=== PATIENT | male | born 1935 ===

== ENCOUNTER 2017-04-07 01:15 | Inpatient (IN) | payer OTHER ==
[~2017-04-07] VITALS: Ht 165.1 cm; Wt 59.7 kg
[2017-04-07] VITALS (63 sets, daily range): BP systolic 101–162; BP diastolic 46–121; PULSE 84–144; RESP 14–32; TEMP 99.1; Ht 165.1 cm; Wt 59.7 kg
--- NOTE | 2017-04-07 01:26 | ERA ---
ER Documentation Chief Complaint Date/Time DATE: 04/07/17 TIME: 01:26 Chief Complaint Altered level of consciousness HPI The patient is a 82-year-old male, presenting to the ER because of acute altered level consciousness prior to arrival according to the . 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 The history is very limited and obtained from the . He has not been sick recently, does not have fever cough, chest pain, abdominal pain, vomiting. He does not smoke nor drink. 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 Medications Home Meds Reported Medications Latanoprost (Latanoprost) 2.5 Ml Drops, 1 DROP BOTH EYES QHS, #1 BOTTLE 04/07/17 Atorvastatin* (Atorvastatin*) 40 Mg Tablet, 40 MG PO QHS, #30 TAB 04/07/17 Lisinopril* (Lisinopril*) 40 Mg Tablet, 40 MG PO DAILY, #30 TAB 04/07/17 Glipizide* (Glipizide*) 5 Mg Tablet, 5 MG PO BID, TAB TAKE 1AND1/2 TABLETS IN THE MORNING AND 1 TABLET IN THE EVENING 04/07/17 Metoprolol Tartrate* (Lopressor*) 25 Mg Tab, 25 MG PO BID, #60 TAB 04/07/17 Quetiapine Fumarate* (Quetiapine Fumarate*) 25 Mg Tablet, 25 MG PO HS, TAB 04/07/17 Atorvastatin* (Atorvastatin*) 80 Mg Tablet, 80 MG PO QHS, #30 TAB 04/07/17 Clopidogrel Bisulfate (Clopidogrel) 75 Mg Tablet, 75 MG PO DAILY, #30 TAB 04/07/17 Terazosin Hcl* (Terazosin Hcl*) 5 Mg Capsule, 5 MG PO DAILY, CAP 04/07/17 Amlodipine Besylate* (Norvasc*) 5 Mg Tablet, 5 MG PO DAILY, TAB 04/07/17 Discontinued Reported Medications Losartan Potassium* (Losartan Potassium*) 50 Mg Tablet, 50 MG PO DAILY, TAB 04/07/17 Atorvastatin* (Atorvastatin*) 40 Mg Tablet, 40 MG PO QHS, #30 TAB 04/07/17 Allergies Allergies: Coded Allergies: No Known Allergy (Unverified , 04/07/17) Physical Exam Vitals Vital Signs Date Time Temp Pulse Resp B/P Pulse Ox O2 Delivery O2 Flow Rate FiO2 04/07/17 05:30 91 21 167/66 95 Room Air 04/07/17 05:15 99 26 189/70 99 Room Air 04/07/17 05:00 99 26 188/80 99 Room Air 04/07/17 04:45 94 25 208/73 99 Room Air 04/07/17 04:30 88 17 194/79 95 Room Air 04/07/17 04:15 99.1 70 17 227/89 95 Room Air 04/07/17 03:34 94 33 209/89 95 Room Air 04/07/17 01:29 100.8 94 33 166/89 95 Room Air 04/07/17 01:26 99.1 94 33 160/95 95 Physical Exam Const: No acute distress. Head: Atraumatic. Eyes: Normal Conjunctiva. ENT: Normal External Ears, Nose and Mouth. Neck: Full range of motion. No meningismus. Resp: Clear to auscultation bilaterally. Cardio: Regular rate and rhythm. Abd: Soft, non distended, normal bowel sounds, non tender. Skin: No petechiae or rashes. Back: No midline or flank tenderness. Ext: No cyanosis, or edema. Neur: Limited due to his condition, he is moving all extremity Psych: Unable to perform due to his condition Result Diagram: 04/07/17 0145 04/07/17 0145 Results 24 hrs Laboratory Tests Test 04/07/17 01:45 04/07/17 02:05 04/07/17 02:19 04/07/17 04:12 White Blood Count 14.910^3/ul Red Blood Count 5.1710^6/ul Hemoglobin 16.0g/dl Hematocrit 45.8% Mean Corpuscular Volume 88.6fl Mean Corpuscular Hemoglobin 30.9pg Mean Corpuscular Hemoglobin Concent 34.9g/dl Red Cell Distribution Width 12.5% Platelet Count 46632^3/UL Mean Platelet Volume 9.9fl Neutrophils % 92.6% Lymphocytes % 1.9% Monocytes % 4.9% Eosinophils % 0.0% Basophils % 0.1% Nucleated Red Blood Cells % 0.0/100WBC Neutrophils # (Manual) 13.810^3/ul Lymphocytes # 0.310^3/ul Monocytes # 0.710^3/ul Eosinophils # 0.010^3/ul Basophils # 0.010^3/ul Nucleated Red Blood Cells # 0.010^3/ul Prothrombin Time 13.5Sec Prothrombin Time Ratio 1.1 INR International Normalized Ratio 1.03 Activated Partial Thromboplast Time 30.4Sec Sodium Level 148mmol/L Potassium Level 4.3mmol/L Chloride Level 108mmol/L Carbon Dioxide Level 27mmol/L Anion Gap 17 Blood Urea Nitrogen 30mg/dl Creatinine 1.35mg/dl Glucose Level 317mg/dl Lactic Acid Level 3.3mmol/L 3.4mmol/L Calcium Level 10.2mg/dl Total Bilirubin 0.4mg/dl Direct Bilirubin 0.00mg/dl Indirect Bilirubin 0.4mg/dl Aspartate Amino Transf (AST/SGOT) 78IU/L Alanine Aminotransferase (ALT/SGPT) 104IU/L Alkaline Phosphatase 58IU/L Troponin I 0.042ng/ml Total Protein 7.6g/dl Albumin 4.1g/dl Globulin 3.50g/dl Albumin/Globulin Ratio 1.17 Urine Color BLU Urine Clarity CLOUDY Urine pH 5.[address] [place] 1.031 Urine Ketones TRACEmg/dL Urine Nitrite NEGATIVEmg/dL Urine Bilirubin NEGATIVEmg/dL Urine Urobilinogen 1+mg/dL Urine Leukocyte Esterase NEGATIVELeu/ul Urine Microscopic RBC 16/HPF Urine Microscopic WBC 10/HPF Urine Bacteria FEW/HPF Urine Mucus MODERATE/HPF Urine Hemoglobin 2+mg/dL Urine Glucose 3+mg/dL Urine Total Protein 2+mg/dl Bedside Urine pH (LAB) 5.5 Bedside Urine Protein (LAB) 2+ Bedside Urine Glucose (UA) 0.50% Bedside Urine Ketones (LAB) Trace Bedside Urine Blood 2+ Bedside Urine Nitrite (LAB) Negative Bedside Urine Leukocyte Esterase (L Negative Current Medications Medications (Trade) Dose Ordered Sig/Xiao Route PRN Reason Start Time Stop Time Status Last Admin Dose Admin Acetaminophen 650 mg 650 mg ONCE ONCE MO 04/07/17 02:00 04/07/17 02:01 DC 04/07/17 03:20 Vancomycin HCl 250 ml @ 125 mls/hr ONCE IVPB 04/07/17 03:00 04/07/17 04:59 DC 04/07/17 03:00 Piperacillin Sod/ Tazobactam Sod 50 ml @ 100 mls/hr ONCE ONCE IVPB 04/07/17 03:00 04/07/17 03:29 DC 04/07/17 03:25 Sodium Chloride (NS) 2,480 ml @ 2,480 mls/hr BOLUS X1 ONCE IV 04/07/17 03:00 04/07/17 03:59 DC 04/07/17 03:08 Lorazepam 0.5 mg 0.5 mg ONCE ONCE IV 04/07/17 03:30 04/07/17 03:31 Cancel Nicardipine HCl (Cardene Iv) 200 ml @ 50 mls/hr TITRATE IV 04/07/17 04:00 04/07/17 04:00 Labetalol HCl 10 mg 10 mg Q10M PRN IV elebated BP 04/07/17 05:30 Nicardipine HCl/ Sodium Chloride (Cardene Iv/NS) 250 ml @ 50 mls/hr PER PROTOCOL IV 04/07/17 05:30 Acetaminophen (Tylenol Tab) 650 mg Q4H PRN PO TEMP GREATER THAN 99.6F 04/07/17 05:30 Docusate Sodium 100 mg 100 mg BID PO 04/07/17 09:00 Dextrose/Sodium Chloride (D5-1/2ns) 1,000 ml @ 70 mls/hr [id number] IV 04/07/17 05:22 Ondansetron HCl (Zofran Inj) 4 mg Q6H PRN IV NAUSEA AND/OR VOMITING 04/07/17 05:30 Albuterol/ Ipratropium (Duoneb) 3 ml Q2H RESP THERAPY PRN NEB SHORTNESS OF BREATH 04/07/17 05:30 Lorazepam (Ativan) 1 mg Q2H PRN IV ANXIETY 04/07/17 05:30 04/07/17 05:29 Magnesium Hydroxide (Milk Of Mag) 30 ml DAILY PRN PO CONSTIPATION 04/07/17 05:30 Bisacodyl (Dulcolax) 5 mg DAILY PRN PO CONSTIPATION 04/07/17 05:30 Bisacodyl (Dulcolax Supp) 10 mg DAILY PRN MO CONSTIPATION 04/07/17 05:30 Pantoprazole (Protonix Iv) 40 mg DAILY@06 IV 04/07/17 06:00 Miscellaneous Information (* Miscellaneous Pharmacy Order) Discontinue current oral sulfonylur... ONCE ONCE XX 04/07/17 05:30 04/07/17 05:33 DC Diagnostic Test (Pha) (Accu-Chek) 1 ea 02 XX 04/08/17 02:00 Insulin Glargine (Lantus) 12 unit DAILY@08 KS 04/07/17 08:00 Miscellaneous Information (* Miscellaneous Pharmacy Order) HYPOGLYCEMIA PROTOCOL w... ONCE ONCE XX 04/07/17 05:30 04/07/17 05:33 DC Insulin Aspart (Novolog Insulin Pen) NOVOLOG *MODERATE* ALGORITHM WITH MEALS BEDTIME KS 04/07/17 08:00 Miscellaneous Information (* Miscellaneous Pharmacy Order) Discontinue all previ... ONCE ONCE XX 04/07/17 05:30 04/07/17 05:33 DC Miscellaneous Information 1 ea NOTE XX 04/07/17 05:30 Glucose (Glutose) 15 gm Q15M PRN PO DECREASED GLUCOSE 04/07/17 05:30 Glucose (Glutose) 22.5 gm Q15M PRN PO DECREASED GLUCOSE 04/07/17 05:30 Dextrose (D50w Syringe) 25 ml Q15M PRN IV DECREASED GLUCOSE 04/07/17 05:30 Dextrose (D50w Syringe) 50 ml Q15M PRN IV DECREASED GLUCOSE 04/07/17 05:30 Glucagon (Glucagen) 1 mg Q15M PRN IM DECREASED GLUCOSE 04/07/17 05:30 Glucose (Glutose) 15 gm Q15M PRN BUCCAL DECREASED GLUCOSE 04/07/17 05:30 Procedures/[place] [address] Radiology Main Line: [phone] DIAGNOSTIC IMAGING REPORT Patient: CARLOS RICARDO : 1935 Age: 82 Sex: M [id number] DOS: 04/07/17 0133 Ordering MD: MIGUELINA COLON MD Location: E/R Room/Bed: PROCEDURE: XR Chest. CLINICAL INDICATION: Possible sepsis. TECHNIQUE: Single frontal view of the chest. COMPARISON: None. FINDINGS: Mild cardiomegaly. Mild air space disease at the medial right lung base. The left lung is clear. The lungs are clear. No signs of pleural fluid or pneumothorax are seen. The osseous structures and soft tissues are unremarkable. IMPRESSION: Mild air space disease at the medial right lung base may represent pneumonia in setting of sepsis. RPTAT: [facility]U Physician Brandon Date Time Electronically viewed and signed by Mirian Louise Physician on 04/07/2017 03:01 RS/ CC: MIGUELINA COLON MD [place] [address] Radiology Main Line: [phone] DIAGNOSTIC IMAGING REPORT Patient: CARLOS RICARDO : 1935 Age: 82 Sex: M MR #: [id number] DOS: 04/07/17 0133 Ordering MD: MIGUELINA COLON MD Location: E/R Room/Bed: PROCEDURE: CT Brain without contrast. CLINICAL INDICATION: Possible sepsis, altered level of consciousness TECHNIQUE: A CT of the brain was performed utilizing axial imaging from the skull base through the vertex without intravenous contrast. Multiplanar reformatted images were made.The CTDIvol is 44.11 mGy and the DLP is 720.23 mGycm. One or more the following dose reduction techniques were utilized: Automated exposure control, adjustment of the mA and / or kV according to patient's size, or use of iterative reconstruction technique. COMPARISON: None. FINDINGS: 5 mm rounded area of increased density in the upper left thalamus region which could represent an acute bleed. No mass effect, or midline shift. No extra- axial fluid collection is seen. Moderate atrophy is identified with compensatory ventricular and sulcal enlargement. Moderate to marked decreased attenuation is seen in the periventricular and deep white matter, compatible with microvascular ischemic disease. Encephalomalacia in the right temporal region. Chronic lacunar infarcts apparent in bilateral central centrum semiovale. The patient is status post right temporal and frontal craniotomy. Arterial calcification. Soft tissue density in the left sphenoid sinus likely inflammatory. IMPRESSION: 1. 5 mm rounded area of increased density in the upper left thalamus region which could represent an acute bleed. 2. Moderate diffuse atrophy. 3. 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 4. The patient is status post right temporal and frontal craniotomy. Encephalomalacia in the right temporal region. Chronic lacunar infarcts apparent in bilateral central centrum semiovale. 5. Critical result discussed with Dr. Colon at 03:28 a.m. on 04/07/2017. RPTAT: HJES .Yannick Mireles MD, MD Date Time Electronically viewed and signed by .Yannick Mireles MD, MD on 04/07/2017 03:30 .S/ CC: MIGUELINA COLON MD EKG: Read by emergency physician Rate/Rhythm: Normal Sinus Rhythm 96 beats/min QRS, ST, T-waves: No ST elevation, no T inversion, First-degree AV block, left atrial enlargement, right bundle branch block Impression: Abnormal EKG . MEDICAL MAKING DECISION: The patient is a 82-year-old male, presenting with acute left thalamus hemorrhage, acute severe sepsis, acute accelerated hypertension, acute kidney injury, acute hyperglycemia. He was treated with Tylenol suppository for fever, vancomycin IV, Zosyn IV, normal saline 30 mL/kg IV for acute severe sepsis, nicardipine drip for acute accelerated hypertension , Albert catheter for acute kidney injury Admit MDM: Patient's infectious symptoms have not stabilized and the patient is at risk of rapid decompensation. The patient will be admitted for careful hydration, antibiotic therapy, and infectious source control. Severe Sepsis criteria: Infectious source: Pneumonia End organ damage indicated by: Lactate > 2.0 mmol/L Sepsis Management: Time of recognition of severe sepsis/septic shock:1:50 am Within 3 hours of recognition: Blood cultures x 2 before broad-spectrum antibiotics: Yes 30 ml/kg NS bolus completed Initial lactate 3.3 Repeat lactate pending Critical Care: Critical care time 35 minutes excluding billable procedure Emergent fluid management while maintaining close respiratory support. Provision of immediate and broad-spectrum antibiotic therapy. Simultaneous assessment for possible sources in order to direct targeted therapy. Consideration for invasive and chemical support to prevent cardiopulmonary collapse. Septic Shock Assessment: Any lactic acid > 4.0 no Persistent hypotension (SBP < 90 or 40 mmHg drop, MAP < 65) despite 30 mL/kg IV fluid bolusno Consultation: I discussed the patient with the on-call neurosurgeon Dr. Altamirano at 3:55 AM, does not recommend antiseizure medication and Admitting the patient admitted to ICU Departure Diagnosis: Primary Impression: Intracranial hemorrhage Additional Impressions: Severe sepsis Accelerated hypertension Acute kidney injury Constipation Hyperglycemia Condition: Critical Comments I discussed the findings with the patient. I discussed the patient with the on- call hospitalist Dr. Gerardo. who was made aware of the lab, the treatment, the patient condition and my discussion with the neurosurgeon. The patient is admitted to ICU MIGUELINA COLON MD Apr 07, 2017 01:26
[2017-04-07] MEDS ORDERED: ACETAMINOPHEN 650 MG SUPP PR ONE (02:00)
[2017-04-07 02:13] LABS: URINE BLOOD (Dip) POC 2+ (NEGATIVE)
[2017-04-07 02:25] LABS: ABNORMAL IP MESSAGE 1; BASOPHILS % 0.1 % (0.0-2.0); HEMATOCRIT 45.8 % (42.0-52.0); LYMPHOCYTES # 0.3 10^3/ul (0.8-2.9); LYMPHOCYTES % 1.9 % (15.0-51.0); MEAN CORPUSCULAR HEMOGLOBIN 30.9 pg (29.0-33.0); MEAN CORPUSCULAR HGB CONC 34.9 g/dl (32.0-37.0); MEAN CORPUSCULAR VOLUME 88.6 fl (82.0-101.0); MEAN PLATELET VOLUME 9.9 fl (7.4-10.4); MONOCYTE # 0.7 10^3/ul (0.3-0.9); MONOCYTES % 4.9 % (0.0-11.0); NEUTROPHILS % 92.6 % (39.0-77.0); PLATELET COUNT 295 10^3/UL (140-415); POSITIVE DIFF @See below; RED BLOOD COUNT 5.17 10^6/ul (4.70-6.10); RED CELL DISTRIBUTION WIDTH 12.5 % (11.5-14.5); WHITE BLOOD COUNT 14.9 10^3/ul (4.8-10.8)
[2017-04-07 02:35] LABS: PARTIAL THROMBOPLASTIN TIME 30.4 Sec (25.0-35.0)
[2017-04-07 02:36] LABS: INR 1.03; PROTIME 13.5 Sec (12.2-14.2); PT RATIO 1.1
[2017-04-07 02:39] LABS: ALBUMIN 4.1 g/dl (3.3-4.9); ALBUMIN/GLOBULIN RATIO 1.17; BILIRUBIN,INDIRECT 0.4 mg/dl (0-1.1); BILIRUBIN,TOTAL 0.4 mg/dl (0.2-1.3); CALCIUM 10.2 mg/dl (8.4-10.2); CREATININE 1.35 mg/dl (0.61-1.24); POTASSIUM 4.3 mmol/L (3.5-5.1); TOTAL PROTEIN 7.6 g/dl (6.1-8.1)
[2017-04-07 02:50] LABS: TROPONIN-I 0.042 ng/ml (0.00-0.12)
[2017-04-07] MEDS ORDERED: SOD CHLORIDE 0.9% 2,480 ML IV ONE (03:00)
[2017-04-07] MEDS ORDERED: PIPER-TAZO 2.25 GM (PMX) 50 ML IVPB ONE (03:00)
[2017-04-07] MEDS ORDERED: VANCOMYCIN 1 GM (PMX) 250 ML IVPB SCH (03:00)
--- NOTE | 2017-04-07 03:01 | RADRPT ---
PROCEDURE: XR Chest. CLINICAL INDICATION: Possible sepsis. TECHNIQUE: Single frontal view of the chest. COMPARISON: None. FINDINGS: Mild cardiomegaly. Mild air space disease at the medial right lung base. The left lung is clear. The lungs are clear. No signs of pleural fluid or pneumothorax are seen. The osseous structures and soft tissues are unremarkable. IMPRESSION: Mild air space disease at the medial right lung base may represent pneumonia in setting of sepsis. RPTAT: UU Physician Brandon Date Time Electronically viewed and signed by Physician Brandon on 04/07/2017 03:01 RS/
[2017-04-07 03:26] LABS: ADD UMIC YES; UR ASCORBIC ACID NEGATIVE (NEGATIVE); UR BACTERIA FEW /HPF (NONE SEEN); UR BILIRUBIN (Dip) NEGATIVE (NEGATIVE); UR BLOOD (Dip) 2+ mg/dL (NEGATIVE); UR CLARITY CLOUDY (CLEAR); UR COLOR AMBER (YELLOW); UR GLUCOSE (Dip) 3+ mg/dL (NEGATIVE); UR KETONES (Dip) TRACE mg/dL (NEGATIVE); UR LEUKOCYTE ESTERASE (Dip) NEGATIVE Leu/ul (NEGATIVE); UR MUCUS MODERATE /HPF (NONE SEEN); UR NITRITE (Dip) NEGATIVE (NEGATIVE); UR RBC 16 /HPF (0-5); UR SPECIFIC GRAVITY (Dip) 1.031 (1.003-1.030); UR TOTAL PROTEIN (Dip) 2+ mg/dl (NEGATIVE); UR UROBILINOGEN (Dip) 1+ mg/dL (NEGATIVE)
[2017-04-07] MEDS ORDERED: LORAZEPAM 2 MG INJ IV ONE ×2 (03:30→10:00)
--- NOTE | 2017-04-07 03:31 | RADRPT ---
PROCEDURE: CT Brain without contrast. CLINICAL INDICATION: Possible sepsis, altered level of consciousness TECHNIQUE: A CT of the brain was performed utilizing axial imaging from the skull base through the vertex without intravenous contrast. Multiplanar reformatted images were made.The CTDIvol is 44.11 mGy and the DLP is 720.23 mGycm. One or more the following dose reduction techniques were utilized: Automated exposure control, adjus tment of the mA and / or kV according to patient's size, or use of iterative reconstruction techniqu e. COMPARISON: None. FINDINGS: 5 mm rounded area of increased density in the upper left thalamus region which could represent an ac jackson bleed. No mass effect, or midline shift. No extra-axial fluid collection is seen. Moderate atr ophy is identified with compensatory ventricular and sulcal enlargement. Moderate to marked decreas ed attenuation is seen in the periventricular and deep white matter, compatible with microvascular i schemic disease. Encephalomalacia in the right temporal region. Chronic lacunar infarcts apparent i n bilateral central centrum semiovale. The patient is status post right temporal and frontal craniot michael. Arterial calcification. Soft tissue density in the left sphenoid sinus likely inflammatory. IMPRESSION: 1. 5 mm rounded area of increased density in the upper left thalamus region which could represent a n acute bleed. 2. Moderate diffuse atrophy. 3. 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 4. The patient is status post right temporal and frontal craniotomy. Encephalomalacia in the right temporal region. Chronic lacunar infarcts apparent in bilateral central centrum semiovale. 5. Critical result discussed with Dr. Vieyra at 03:28 a.m. on 04/07/2017. RPTAT: HJES .Yannick Mireles MD, MD Date Time Electronically viewed and signed by .Yannick Mireles MD, MD on 04/07/2017 03:30 .S/
[2017-04-07] MEDS: niCARdipine-NS 0.1MG/ML DRIP 200 ML IV SCH ×2 (04:00→06:57)
[2017-04-07] MEDS ORDERED: ATOR40TA68 PO ×2 (04:22→05:22)
[2017-04-07] MEDS ORDERED: LOSA50TA6 PO (04:22)
[2017-04-07] MEDS ORDERED: AMLO5TAB4 PO (05:22)
[2017-04-07] MEDS ORDERED: LATA2.5D2 BOTH EYES (05:22)
[2017-04-07] MEDS ORDERED: LISI40TA9 PO (05:22)
[2017-04-07] MEDS ORDERED: TERA5CAP3 PO (05:22)
[2017-04-07] MEDS ORDERED: DEXTROSE 5%-0.45% NACL 1,000 ML IV SCH (05:22)
[2017-04-07] MEDS ORDERED: QUET25TA33 PO (05:22)
[2017-04-07] MEDS ORDERED: CLOP75TA27 PO (05:22)
[2017-04-07] MEDS ORDERED: ATOR80TA75 PO (05:22)
[2017-04-07] MEDS ORDERED: METO-448 PO (05:22)
[2017-04-07] MEDS ORDERED: GLIP5TAB13 PO (05:22)
[2017-04-07] MEDS: LORAZEPAM 2 MG INJ IV PRN ×2 (05:29→19:35)
[2017-04-07] MEDS ORDERED: ONDANSETRON 4 MG INJ IV PRN (05:30)
[2017-04-07] MEDS ORDERED: DEXTROSE 50% 50 ML SYRINGE IV PRN ×2 (05:30)
[2017-04-07] MEDS ORDERED: BISACODYL 10 MG SUPP PR PRN (05:30)
[2017-04-07] MEDS ORDERED: BISACODYL (EC) 5 MG TAB PO PRN (05:30)
[2017-04-07] MEDS ORDERED: GLUCOSE GEL 15 GRAM TUBE PO PRN ×2 (05:30)
[2017-04-07] MEDS ORDERED: ACETAMINOPHEN 325 MG TAB PO PRN (05:30)
[2017-04-07] MEDS ORDERED: GLUCOSE GEL 15 GRAM TUBE BUCCAL PRN (05:30)
[2017-04-07] MEDS ORDERED: MAGNESIUM HYDROXIDE 30ML CUP PO PRN (05:30)
[2017-04-07] MEDS ORDERED: GLUCAGON 1 MG INJ IM PRN (05:30)
[2017-04-07] MEDS ORDERED: ALBUTEROL/IPRATROPIUM (NEB) 3 ML AMP NEB PRN (05:30)
--- NOTE | 2017-04-07 05:41 | HP ---
Date/Time of Note Date/Time of Note DATE: 04/07/17 TIME: 05:30 Assessment/Plan VTE Prophylaxis VTE Prophylaxis Intervention: SCD's Lines/Catheters Urinary Cath still in place: No Assessment/Plan Assessment/Plan 1. Left thalamic density, possibly acute bleed -Admit to ICU -Nicardipine drip for better blood pressure control(goal is BP less than 140) -Repeat head CT and will order MRI of the brain -Follow-up neurosurgery recommendation 2. Hypertensive emergency -Systolic blood pressure has been as high as 200 -Continue nicardipine drip. Will add additional IV antihypertensive 3. Sepsis, as evidenced by fever and leukocytosis: 2/2 UTI and pneumonia -IV antibiotic -Follow-up culture results 4. Presumed chronic kidney disease -Nephrology consult 5. Diabetes with hyperglycemia -Insulin with adjustment as needed -Check A1c HPI/ROS Admit Date/Time Admit Date/Time Hx of Present Illness Patient is an 82-year-old male with a history of craniotomy and a diabetes who was brought to the ER for altered mentation and weakness. Reportedly, stated that he appeared more altered than usual and was weak. When EMS arrived , they noted that patient was too weak to get out of bed. When he presented to the ER, he was febrile with a temperature of 100.8. Systolic blood pressure in the 160s. Labs shows a WBC of 15,000, lactic acid 3.3, creatinine 1.35, glucose 317 as well as elevated transaminases. Brain CT showed a 5 mm rounded area of increased density in the left upper thalamus, possibly representing acute bleeding, status post right temporal and frontal craniotomy, encephalomalacia in the right temporal region and chronic lacunar infarcts apparent in bilateral central centrum semiovale. . PMH/Family/Social Past Medical History Status post craniotomy Diabetes . Past Surgical History Past Surgical Hx: other (Craniotomy) Social History Alcohol Use: other Smoking Status: Unknown if ever smoked Drug Use: none Exam/Review of Systems Vital Signs Vitals Vital Signs Date Time Temp Pulse Resp B/P Pulse Ox O2 Delivery O2 Flow Rate FiO2 04/07/17 05:15 99 26 189/70 99 Room Air 04/07/17 04:15 99.1 Exam Constitutional: other (No acute distress. Sleepy but arousable.) Eyes: PERRL Respiratory: diminished breath sounds Cardiovascular: other (Tachycardic with regular rhythm) Gastrointestinal: non-tender, soft Extremities: normal pulses Neurological: other (Generalized weakness) Labs Result Diagram: 04/07/175 04/07/17 014 Medications Medications Current Medications Nicardipine HCl (Cardene Iv) 200 ml @ 50 mls/hr TITRATE IV Last administered on 04/07/17t 04:00; Admin Dose 50 MLS/HR; Start 04/07/17 at 04:00 Labetalol HCl (Labetalol) 10 mg Q10M PRN IV elebated BP; Start 04/07/17 at 05:30 Acetaminophen (Tylenol Tab) 650 mg Q4H PRN PO TEMP GREATER THAN 99.6F; Start at 05:30 Docusate Sodium 100 mg 100 mg BID PO ; Start 04/07/17 at 09:00 Dextrose/Sodium Chloride (D5-1/2ns) 1,000 ml @ 70 mls/hr Q32Q10C IV ; Start 04/07/17 at 05:22 Ondansetron HCl (Zofran Inj) 4 mg Q6H PRN IV NAUSEA AND/OR VOMITING; Start 04/07 at 05:30 Lorazepam (Ativan) 1 mg Q2H PRN IV ANXIETY; Start 04/07/17 at 05:30 Magnesium Hydroxide (Milk Of Mag) 30 ml DAILY PRN PO CONSTIPATION; Start at 05:30 Bisacodyl (Dulcolax) 5 mg DAILY PRN PO CONSTIPATION; Start 04/07/17 at 05:30 Bisacodyl (Dulcolax Supp) 10 mg DAILY PRN DC CONSTIPATION; Start 04/07/17 at 05: 30 Pantoprazole (Protonix Iv) 40 mg DAILY@06 IV ; Start 04/07/17 at 06:00 HUSEYIN ALCAZAR MD Apr 07, 2017 05:41
[2017-04-07] MEDS: niCARdipine 25 MG in SOD CHLORIDE 0.9% 240 ML IV SCH ×3 (08:01→11:40)
[2017-04-07] MEDS: PANTOPRAZOLE 40 MG INJ IV SCH (08:51)
[2017-04-07] MEDS: DEXTROSE 5%-0.9% NACL 1,000 ML IV SCH ×2 (09:06→19:49)
[2017-04-07] MEDS: DOCUSATE SODIUM 100 MG CAP PO SCH ×2 (09:45→20:17)
[2017-04-07] MEDS: INSULIN ASPART [NOVOLOG] 3 ML PEN SC SCH ×4 (09:47→20:39)
[2017-04-07] MEDS: INSULIN GLARGINE [LANtus] 3 ML PEN SC SCH (09:50)
[2017-04-07] MEDS ORDERED: niCARdipine 50 MG in SOD CHLORIDE 0.9% 480 ML IV SCH (11:31)
[2017-04-07] MEDS: PIPER-TAZO 3.375 GM IV (PMX) 100 ML IVPB SCH ×3 (11:56→23:56)
--- NOTE | 2017-04-07 12:17 | CONS ---
Date/Time of Note Date/Time of Note DATE: 04/07/17 TIME: 12:10 Assessment/Plan Assessment/Plan Problems: (1) Intracranial hemorrhage Status: Acute Additional Assessment/Plan The patient is an 82 year old male with prior history of aneurysm and craniotomy , and 3-4 year history of dementia. He lives at home and is cared for by family. He has a small focus of hyperdensity in the left lateral ventricle ( contralateral to prior craniotomy site) that could represent a small focus of hemorrhage. Alternatively it could be a small calcification. MRI is pending. No neurosurgical intervention is indicated at the present time. Consultation Date/Type/Reason Admit Date/Time Date of Consultation: Apr 07, 2017 Type of Consultation: neurosurgery Reason for Consultation ICH Hx of Present Illness 82 year old with 3-4 year history of dementia and remote (c.1992) history of craniotomy for aneurysm at [facility]. He was brought into the Er by his after being found on his knees with worsened confusion. He denies headache. He had CT in the Er which demonstrated a focus of hyperdensity in the left lateral ventricle. There is no mass effect. There appears to be a small associated area of calcification on the coronal reformatted images. There is ex vacuo ventriculomegaly. Cannot be obtained due to altered mental status Past Medical History Cannot be obtained due to altered mental status Past Surgical History Cannot be obtained due to altered mental status Past Surgical Hx: other (Craniotomy) Social History Cannot be obtained due to altered mental status Alcohol Use: other Smoking Status: Never smoker Drug Use: none Exam/Review of Systems Vital Signs Vitals Vital Signs Date Time Temp Pulse Resp B/P Pulse Ox O2 Delivery O2 Flow Rate FiO2 04/07/17 09:30 92 127/68 96 Room Air 04/07/17 09:15 25 04/07/17 08:00 98.6 Intake and Output 04/06/17 04/06/17 04/07/17 15:00 23:00 07:00 Output Total 100 ml Balance -100 ml Exam ON neurologic exam patient is confused and disoriented but does follow commands and answers simple questions. CN exam EOMI face= PERRL, TML Motor exam 5/5 throughout bilateral upper and lower extremities. He denies any hypoesthesia. Results Result Diagram: 04/07/17 0145 04/07/17 0145 Results 24 hrs Laboratory Tests Test 04/07/17 01:45 04/07/17 02:05 04/07/17 02:19 04/07/17 04:12 White Blood Count 14.9 H Red Blood Count 5.17 Hemoglobin 16.0 Hematocrit 45.8 Mean Corpuscular Volume 88.6 Mean Corpuscular Hemoglobin 30.9 Mean Corpuscular Hemoglobin Concent 34.9 Red Cell Distribution Width 12.5 Platelet Count 295 Mean Platelet Volume 9.9 Neutrophils % 92.6 H Lymphocytes % 1.9 L Monocytes % 4.9 Eosinophils % 0.0 Basophils % 0.1 Nucleated Red Blood Cells % 0.0 Neutrophils # (Manual) 13.8 H Lymphocytes # 0.3 L Monocytes # 0.7 Eosinophils # 0.0 Basophils # 0.0 Nucleated Red Blood Cells # 0.0 Prothrombin Time 13.5 Prothrombin Time Ratio 1.1 INR International Normalized Ratio 1.03 Activated Partial Thromboplast Time 30.4 Sodium Level 148 H Potassium Level 4.3 Chloride Level 108 Carbon Dioxide Level 27 Anion Gap 17 H Blood Urea Nitrogen 30 H Creatinine 1.35 H Glucose Level 317 H Lactic Acid Level 3.3 *H 3.4 *H Calcium Level 10.2 Total Bilirubin 0.4 Direct Bilirubin 0.00 Indirect Bilirubin 0.4 Aspartate Amino Transf (AST/SGOT) 78 H Alanine Aminotransferase (ALT/SGPT) 104 H Alkaline Phosphatase 58 Troponin I 0.042 Total Protein 7.6 Albumin 4.1 Globulin 3.50 H Albumin/Globulin Ratio 1.17 Urine Color BLU Urine Clarity CLOUDY A Urine pH 5.0 Urine Specific Elizabeth 1.031 H Urine Ketones TRACE A Urine Nitrite NEGATIVE Urine Bilirubin NEGATIVE Urine Urobilinogen 1+ H Urine Leukocyte Esterase NEGATIVE Urine Microscopic RBC 16 H Urine Microscopic WBC 10 H Urine Bacteria FEW A Urine Mucus MODERATE Urine Hemoglobin 2+ H Urine Glucose 3+ H Urine Total Protein 2+ H Bedside Urine pH (LAB) 5.5 Bedside Urine Protein (LAB) 2+ H Bedside Urine Glucose (UA) 0.50% H Bedside Urine Ketones (LAB) Trace H Bedside Urine Blood 2+ H Bedside Urine Nitrite (LAB) Negative Bedside Urine Leukocyte Esterase (L Negative Test 04/07/17 07:10 04/07/17 07:11 04/07/17 09:09 04/07/17 10:23 Lactic Acid Level 4.1 *H 5.3 *H Bedside Glucose 261 H 220 Test 04/07/17 11:53 Bedside Glucose 176 Medications Medications Current Medications Nicardipine HCl (Cardene Iv) 200 ml @ 50 mls/hr TITRATE IV Last administered on 04/07/17 06:57; Admin Dose 150 MLS/HR; Start 04/07/17 at 04:00 Labetalol HCl (Labetalol) 10 mg Q10M PRN IV elebated BP; Start 04/07/17 at 05:30 Acetaminophen (Tylenol Tab) 650 mg Q4H PRN PO TEMP GREATER THAN 99.6F; Start at 05:30 Docusate Sodium (Colace) 100 mg BID PO Last administered on 04/07/17 09:45; Admin Dose 100 MG; Start 04/07/17 at 09:00 Ondansetron HCl (Zofran Inj) 4 mg Q6H PRN IV NAUSEA AND/OR VOMITING; Start 04/07 at 05:30 Lorazepam (Ativan) 1 mg Q2H PRN IV ANXIETY Last administered on 04/07/17 05:29 ; Admin Dose 1 MG; Start 04/07/17 at 05:30 Magnesium Hydroxide (Milk Of Mag) 30 ml DAILY PRN PO CONSTIPATION; Start at 05:30 Bisacodyl (Dulcolax) 5 mg DAILY PRN PO CONSTIPATION; Start 04/07/17 at 05:30 Bisacodyl (Dulcolax Supp) 10 mg DAILY PRN [place] CONSTIPATION; Start 04/07/17 at 05: 30 Pantoprazole (Protonix Iv) 40 mg DAILY@06 IV Last administered on 04/07/17 08: 51; Admin Dose 40 MG; Start 04/07/17 at 06:00 Diagnostic Test (Pha) (Accu-Chek) 1 ea 02 XX ; Start 04/08/17 at 02:00 Insulin Glargine (Lantus) 12 unit DAILY@08 SC Last administered on 04/07/17 09: 50; Admin Dose 12 UNIT; Start 04/07/17 at 08:00 Miscellaneous Information 1 ea NOTE XX ; Start 04/07/17 at 05:30 Glucose (Glutose) 15 gm Q15M PRN PO DECREASED GLUCOSE; Start 04/07/17 at 05:30 Glucose (Glutose) 22.5 gm Q15M PRN PO DECREASED GLUCOSE; Start 04/07/17 at 05:30 Dextrose (D50w Syringe) 25 ml Q15M PRN IV DECREASED GLUCOSE; Start 04/07/17 at 05:30 Dextrose (D50w Syringe) 50 ml Q15M PRN IV DECREASED GLUCOSE; Start 04/07/17 at 05:30 Glucagon (Glucagen) 1 mg Q15M PRN IM DECREASED GLUCOSE; Start 04/07/17 at 05:30 Glucose 15 gm 15 gm Q15M PRN BUCCAL DECREASED GLUCOSE; Start 04/07/17 at 05:30 Dextrose/Sodium Chloride 1,000 ml @ 100 mls/hr Q10H IV Last administered on 09:06; Admin Dose 100 MLS/HR; Start 04/07/17 at 09:00 Piperacillin Sod/ Tazobactam Sod (Zosyn 3.375gm/ 100 ml (Pmx)) 100 ml @ 200 mls /hr Q6 IVPB Last administered on 04/07/17 11:56; Admin Dose 200 MLS/HR; Start 04/07/17 at 12:00 ANGELIC MCCABE MD Apr 07, 2017 12:17
[2017-04-07] MEDS ORDERED: SOD CHLORIDE 0.9% 100 ML ONE (13:35)
[2017-04-07] MEDS ORDERED: IOHEXOL 100 ML ONE (13:35)
[2017-04-07] MEDS: niCARdipine 50 MG in SOD CHLORIDE 0.9% 480 ML IV SCH ×2 (15:53→22:50)
--- NOTE | 2017-04-07 16:26 | RADRPT ---
PROCEDURE: MRA Brain. CLINICAL INDICATION: Intracranial hemorrhage. TECHNIQUE: An MRA of the brain was performed on a 1.5 lily scanner utilizing 3-D [id number] MR angiography technique. Source and MIP images were reviewed. COMPARISON: 04/07/2017 CT brain FINDINGS: The study is extremely limited due to patient motion and is degradation. Rule no gross evidence of large vascular malformation or intracranial aneurysm. Detailed evaluation of the second order branc h vessels is nondiagnostic. Grossly patent internal carotid arteries, proximal anterior and middle cerebral arteries, basilar artery and posterior cerebral arteries. Dominant left vertebral artery w ith hypoplastic right vertebral artery. IMPRESSION: 1. Extremely limited study. No large vascular malformation or intracranial aneurysm. Evaluation of the distal first and second order branches of intracranial vessels is nondiagnostic due to patient m otion. RPTAT:AAJJ Physician Clayton Date Time Electronically viewed and signed by Physician Clayton on 04/07/2017 16:26 JC/
--- NOTE | 2017-04-07 20:32 | RADRPT ---
PROCEDURE: CTA Head. CLINICAL INDICATION: "Aneurysm" TECHNIQUE: CTA of the head was obtained with 1 mm axial images. The administered radiation dose was CTDI vol = 60.28, 36.69 mGy, DLP = 860.53 mGy-cm. Images were obtained following the intravenous c ontrast administration of 100 cc Omnipaque-350 contrast. Coronal and sagittal reformations were obt ained. One or more of the following dose reduction techniques were used: Automated exposure control, Adjustment of the mA and/or kV according to patient size, or Use of iterative reconstruction techni que. COMPARISON: MRA brain 04/07/2017 FINDINGS: The images are degraded by motion artifact, markedly limiting evaluation. The major arteries of the [place] are not adequately evaluated distal to the proximal second order branches (ie. dist al to the proximal A2, proximal M2, and proximal P2 branches) due to motion artifact. CTA head: Carotid arteries: Patent bilaterally. There is multi focal soft and calcific atherosclerotic plaque involving the distal petrous, cavernous, paraclinoid, and supraclinoid segments of the internal car otid arteries bilaterally. There is associated multi focal irregular stenoses, most prominent in th e cavernous internal carotid artery segments bilaterally with the associated degree of maximal steno sis moderate on the left and and mild to moderate on the right. Anterior cerebral arteries: Patent bilaterally without evidence of significant stenosis to the level of the proximal A2 segments bilaterally. Middle cerebral arteries: Patent bilaterally without evidence of significant stenosis to the level o f the proximal M2 segments bilaterally. Posterior cerebral arteries: Patent bilaterally without evidence of significant stenosis to the leve l of the proximal P2 segments bilaterally. Anterior communicating artery: Present. Posterior communicating arteries: Hypoplastic bilaterally. Basilar artery: Patent with mild focal stenosis of the mid to distal basilar artery (series 3, image 189). Vertebral arteries: The left distal cervical (V3) segment is widely patent. There is short segment, eccentric soft and calcific atherosclerotic plaque involving the proximal intradural (V4) segment o f the left vertebral artery, resulting in approximately 50% luminal stenosis (series 3, image 245). There is approximately 50% focal concentric atherosclerotic stenosis of the distal V2 segment of the right vertebral artery, at the C2-C3 level (series 3, image 313). There is approximately 50% focal concentric atherosclerotic stenosis of the proximal V3 segment of the right vertebral artery, at th e C1-C2 level (series 3, image 261). There is eccentric soft and calcific atherosclerotic plaque in volving the distal V3 segment of the right vertebral artery with associated approximately 50% focal stenosis (series 3, image 262). There is extensive soft and calcific atherosclerotic plaque involvi ng the proximal intradural (V4) segment of the right vertebral artery with associated multi focal severe, nearly completely occlusive stenoses (series 3, images 248, 2/43, and 239). There is associa danny relative decreased opacification of the mid intradural right vertebral artery. Vertebral artery dominance: The left vertebral artery is dominant. Aneurysm: No cerebral aneurysm is identified, to the level of the proximal second order branches of the [place]. The more distal branches of the [place] could not be adequately eval uated due to extensive motion artifact. Venous sinuses: Grossly patent. Right frontotemporal craniotomy is redemonstrated. Mixed attenuation soft tissue of the left spheno id sinus are redemonstrated. Mild mucosal thickening in the right sphenoid sinus is also noted. IMPRESSION: 1. Limited study secondary to extensive motion artifact, as described above. 2. No evidence of cerebral aneurysm of the proximal [place], to the level of the proximal second order branches of the [place]. 3. Extensive soft and calcific atherosclerotic plaque involving the proximal intradural (V4) segment of the right vertebral artery with associated multi focal severe, nearly completely occlusive steno ses. The right vertebral artery is nondominant. 4. Short segment, eccentric soft and calcific atherosclerotic plaque involving the proximal intradur al (V4) segment of the left vertebral artery, resulting in approximately 50% luminal stenosis. The l eft vertebral artery is dominant. 5. Approximately 50% focal concentric atherosclerotic stenosis of the distal V2 segment of the right vertebral artery, at the C2-C3 level. 6. Approximately 50% focal concentric atherosclerotic stenosis of the proximal V3 segment of the rig ht vertebral artery, at the C1-C2 level. 7. Eccentric soft and calcific atherosclerotic plaque involving the distal V3 segment of the right v ertebral artery with associated approximately 50% focal stenosis. 8. Intracranial atherosclerotic disease involving the internal carotid arteries with associated mult i focal irregular stenoses, most prominent in the cavernous internal carotid artery segments bilater ally, with resultant maximal stenosis moderate on the left and and mild to moderate on the right. 9. Mild focal stenosis of the mid to distal basilar artery. 10. Bilateral sphenoid sinus inflammatory changes with prominent mixed attenuation or soft tissue an d / or debris within the left sphenoid sinus. RPTAT: HRC Mukund Vaz Physician Date Time Electronically viewed and signed by Mukund Vaz Physician on 04/07/2017 20:32 RC/
[2017-04-08] VITALS (86 sets, daily range): BP systolic 111–186; BP diastolic 53–130; PULSE 70–130; RESP 14–35
[2017-04-08] MEDS: ACCU-CHEK XX SCH (02:00)
[2017-04-08] MEDS: LORAZEPAM 2 MG INJ IV PRN (04:19)
[2017-04-08] MEDS: niCARdipine 50 MG in SOD CHLORIDE 0.9% 480 ML IV SCH ×4 (04:43→23:31)
[2017-04-08] MEDS: DEXTROSE 5%-0.9% NACL 1,000 ML IV SCH ×2 (04:43→17:00)
[2017-04-08] MEDS: PANTOPRAZOLE 40 MG INJ IV SCH (05:34)
[2017-04-08] MEDS: PIPER-TAZO 3.375 GM IV (PMX) 100 ML IVPB SCH ×3 (05:34→17:40)
[2017-04-08 05:37] LABS: BASOPHILS % 0.1 % (0.0-2.0); EOSINOPHILS # 0.1 10^3/ul (0.0-0.5); EOSINOPHILS % 0.3 % (0.0-7.0); HEMOGLOBIN 14.5 g/dl (14.0-18.0); LYMPHOCYTES # 1.4 10^3/ul (0.8-2.9); LYMPHOCYTES % 9.2 % (15.0-51.0); MEAN CORPUSCULAR HEMOGLOBIN 30.2 pg (29.0-33.0); MEAN CORPUSCULAR HGB CONC 34.5 g/dl (32.0-37.0); MEAN CORPUSCULAR VOLUME 87.5 fl (82.0-101.0); MEAN PLATELET VOLUME 10.1 fl (7.4-10.4); MONOCYTES % 6.4 % (0.0-11.0); NEUTROPHILS % 83.2 % (39.0-77.0); PLATELET COUNT 242 10^3/UL (140-415); RED CELL DISTRIBUTION WIDTH 12.6 % (11.5-14.5); WHITE BLOOD COUNT 15.6 10^3/ul (4.8-10.8)
[2017-04-08 06:14] LABS: POTASSIUM 2.9 mmol/L (3.5-5.1)
[2017-04-08] MEDS ORDERED: HALOPERIDOL 5 MG INJ IM PRN (06:30)
[2017-04-08] MEDS ORDERED: POTASSIUM CHLORIDE 30 MEQ in DEXTROSE 5% 250 ML IVPB ONE (06:30)
[2017-04-08] MEDS: INSULIN ASPART [NOVOLOG] 3 ML PEN SC SCH ×4 (07:35→21:13)
[2017-04-08] MEDS: POTASSIUM CHLORIDE 30 MEQ in DEXTROSE 5% 250 ML IVPB SCH ×2 (08:11→11:57)
[2017-04-08] MEDS: DOCUSATE SODIUM 100 MG CAP PO SCH ×2 (08:11→21:00)
[2017-04-08] MEDS: INSULIN GLARGINE [LANtus] 3 ML PEN SC SCH (08:16)
--- NOTE | 2017-04-08 13:50 | QN ---
Documentation Comment This is a follow up note. I reviewed the CTA which shows no increase in size of hyperdensity, no aneurysm or other vascular malformation. I do not think the patient's altered mental status is attributable to this small focus of hyperdensity, even if it does represent a small hemorrhage. This afternoon the patient is less awake. He is lethargic and slow to arouse. He was given ativan at ~0400. We will check a CT of the head without contrast today to rule out progression of the abnormality. There is no indication for any neurosurgical intervention and the patient is furthermore stable for transfer/ repatriation back to [place] from the neurosurgical point of view. ANGELIC MCCABE MD Apr 08, 2017 13:50
--- NOTE | 2017-04-08 15:26 | PN ---
Date/Time of Note Date/Time of Note DATE: 04/08/17 TIME: 15:09 Assessment/Plan VTE Prophylaxis VTE Prophylaxis Intervention: SCD's Lines/Catheters IV C[facility]ter Type [facility] Peripheral IV Urinary Cath still in place: Yes Assessment/Plan Chief Complaint/Hosp Course Assessment and plan 1. 5 mm increased density in the upper left thalamus suspect for possible bleed. Neurosurgeon is following. Repeat CT showed no increase in size of hyper density. Plan for repeat CT scan per neurosurgeon. Continue neuro checks. 2. ALOC. Patient noted with underlying dementia. Possibly also superimposed with #1. Continue reorientation. 3. Hypokalemia. Monitor and replete as needed. Follow-up on magnesium level. 4. Hypertension. Continue antihypertensives and adjust needed 5. Sepsis secondary to pneumonia/UTI. Continue antibiotics 6. CKD. Improving. Will monitor 7. Diabetes. Continue on this regimen. Adjust as needed Disposition plan: Tentative plan for repeat CT scan of the head. Continue antibiotics for underlying pneumonia and UTI. Continue ICU monitoring. Discussed plan of care with Critical Care time: 30 minutes Problems: Subjective 24 Hr Interval Summary Free Text/Dictation lethargic, but arrousable to noxious stimulus Exam/Review of Systems Vital Signs Vitals Vital Signs Date Time Temp Pulse Resp B/P Pulse Ox O2 Delivery O2 Flow Rate FiO2 04/08/17 13:45 81 24 131/58 96 04/08/17 13:00 Room Air 04/08/17 12:00 97.5 Intake and Output 04/07/17 04/07/17 04/08/17 15:00 23:00 07:00 Intake Total 1657.5 ml 1505 ml 700 ml Output Total 625 ml 1150 ml 835 ml Balance 1032.5 ml 355 ml -135 ml Exam Constitutional: alert, other (lethargic) Head: normocephalic Respiratory: clear to auscultation, normal air movement Cardiovascular: other (regular rate ) Gastrointestinal: soft Extremities: normal pulses Neurological: other (underlying dementia ), No nl mental status Results Result Diagram: 04/08/17 0453 04/08/17 0453 Results 24 hrs Laboratory Tests Test 04/07/17 17:07 04/07/17 20:38 04/08/17 04:53 04/08/17 07:36 Bedside Glucose 126 156 189 White Blood Count 15.6 H Red Blood Count 4.80 Hemoglobin 14.5 Hematocrit 42.0 Mean Corpuscular Volume 87.5 Mean Corpuscular Hemoglobin 30.2 Mean Corpuscular Hemoglobin Concent 34.5 Red Cell Distribution Width 12.6 Platelet Count 242 Mean Platelet Volume 10.1 Neutrophils % 83.2 H Lymphocytes % 9.2 L Monocytes % 6.4 Eosinophils % 0.3 Basophils % 0.1 Nucleated Red Blood Cells % 0.0 Neutrophils # (Manual) 13.0 H Lymphocytes # 1.4 Monocytes # 1.0 H Eosinophils # 0.1 Basophils # 0.0 Nucleated Red Blood Cells # 0.0 Sodium Level 146 H Potassium Level 2.9 *L Chloride Level 114 H Carbon Dioxide Level 23 Anion Gap 12 Blood Urea Nitrogen 12 # Creatinine 1.00 Glucose Level 196 # Calcium Level 8.0 L Test 04/08/17 11:56 Bedside Glucose 206 Medications Medications Current Medications Nicardipine HCl (Cardene Iv) 200 ml @ 50 mls/hr TITRATE IV Last administered on 04/07/17 06:57; Admin Dose 150 MLS/HR; Start 04/07/17 at 04:00 Labetalol HCl (Labetalol) 10 mg Q10M PRN IV elebated BP; Start 04/07/17 at 05:30 Acetaminophen (Tylenol Tab) 650 mg Q4H PRN PO TEMP GREATER THAN 99.6F; Start at 05:30 Docusate Sodium (Colace) 100 mg BID PO Last administered on 04/07/17 09:45; Admin Dose 100 MG; Start 04/07/17 at 09:00 Ondansetron HCl (Zofran Inj) 4 mg Q6H PRN IV NAUSEA AND/OR VOMITING; Start 04/07 at 05:30 Lorazepam (Ativan) 1 mg Q2H PRN IV ANXIETY Last administered on 04/08/17 04:19 ; Admin Dose 1 MG; Start 04/07/17 at 05:30 Magnesium Hydroxide (Milk Of Mag) 30 ml DAILY PRN PO CONSTIPATION; Start at 05:30 Bisacodyl (Dulcolax) 5 mg DAILY PRN PO CONSTIPATION; Start 04/07/17 at 05:30 Bisacodyl (Dulcolax Supp) 10 mg DAILY PRN [place] CONSTIPATION Last administered on 04/07/17 15:52; Admin Dose 10 MG; Start 04/07/17 at 05:30 Pantoprazole (Protonix Iv) 40 mg DAILY@06 IV Last administered on 04/08/17 05: 34; Admin Dose 40 MG; Start 04/07/17 at 06:00 Diagnostic Test (Pha) (Accu-Chek) 1 ea 02 XX ; Start 04/08/17 at 02:00 Insulin Glargine (Lantus) 12 unit DAILY@08 SC Last administered on 04/08/17 08: 16; Admin Dose 12 UNIT; Start 04/07/17 at 08:00 Miscellaneous Information 1 ea NOTE XX ; Start 04/07/17 at 05:30 Glucose (Glutose) 15 gm Q15M PRN PO DECREASED GLUCOSE; Start 04/07/17 at 05:30 Glucose (Glutose) 22.5 gm Q15M PRN PO DECREASED GLUCOSE; Start 04/07/17 at 05:30 Dextrose (D50w Syringe) 25 ml Q15M PRN IV DECREASED GLUCOSE; Start 04/07/17 at 05:30 Dextrose (D50w Syringe) 50 ml Q15M PRN IV DECREASED GLUCOSE; Start 04/07/17 at 05:30 Glucagon (Glucagen) 1 mg Q15M PRN IM DECREASED GLUCOSE; Start 04/07/17 at 05:30 Glucose 15 gm 15 gm Q15M PRN BUCCAL DECREASED GLUCOSE; Start 04/07/17 at 05:30 Dextrose/Sodium Chloride 1,000 ml @ 100 mls/hr Q10H IV Last administered on 04:43; Admin Dose 100 MLS/HR; Start 04/07/17 at 09:00 Piperacillin Sod/ Tazobactam Sod (Zosyn 3.375gm/ 100 ml (Pmx)) 100 ml @ 200 mls /hr Q6 IVPB Last administered on 04/08/17 11:57; Admin Dose 200 MLS/HR; Start 04/07/17 at 12:00 Haloperidol (Haldol) 5 mg Q4 PRN IM ANXIETY; Start 04/08/17 at 06:30 ELEONORA RAZO Apr 08, 2017 15:25
[2017-04-08] MEDS ORDERED: MAGNESIUM SULFATE 2 GM/50 ML 50 ML IVPB ONE (17:00)
[2017-04-08] MEDS ORDERED: HALOPERIDOL 5 MG INJ IV PRN (20:30)
[2017-04-08] MEDS: FAMOTIDINE 20 MG INJ IV SCH (21:02)
[2017-04-08] MEDS: POTASSIUM CHLORIDE 20 MEQ in DEXTROSE 5%-0.9% NACL 1,000 ML IV SCH (21:40)
[2017-04-08] MEDS: HALOPERIDOL 5 MG INJ IM PRN (21:49)
--- NOTE | 2017-04-08 22:24 | RADRPT ---
PROCEDURE: CT Head without. CLINICAL INDICATION: Altered mental state, intracranial hemorrhage, follow-up evaluation. TECHNIQUE: The study was performed utilizing a multi-slice, multidetector CT scanner. Direct spira l 1 mm axial sections were obtained through the head without the use of intravenous contrast materia l. 1 or more of the following dose reduction techniques were utilized: Automated exposure control, adjustment of the mA and/or kV according to patient's size, iterative reconstruction technique. Co harjit and sagittal reformations were obtained. The images were reviewed on a PACS workstation. RADIATION DOSE: CTDIvol: 44.3 mGyDLP: 720.2 mGy-cm COMPARISON: CTA 04/07/2017, CT head 04/07/2017 FINDINGS: There is stable appearance of 5 x 4 mm hemorrhage involving the left thalamic region, with mild maninder cent vasogenic edema. This is stable in size and appearance compared to the prior examination. The re is no extra-axial fluid collection, mass lesion, midline shift or hydrocephalus. There is modera te prominence of the cerebral sulci, lateral and third ventricles. There are severe patchy and conf luent periventricular and subcortical white matter hypodensities, likely related to chronic microang iopathic changes. There is encephalomalacia involving the right posterior temporal lobe, consistent with remote prior infarct. There is moderate atherosclerotic calcification of the bilateral parase llar internal carotid arteries. The basal cisterns are patent. The midline structures are intact. The orbits, calvarium and extracranial soft tissues are normal in appearance. The visualized parana hermilo sinuses, mastoid air cells and middle ear cavities are normally aerated. IMPRESSION: 1. No significant interval change compared to 04/07/2017. Stable appearance of 5 x 4 mm left thala ken hemorrhage with adjacent vasogenic edema. 2. No significant mass effect, midline shift or evidence of hydrocephalous. 3. Moderate peripheral and central cerebral volume loss. 4. Severe patchy and confluent periventricular and subcortical white matter lesions, likely related to chronic microangiopathic changes. 5. 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 RPTAT: HGAS .Ronen Torres MD, MD Date Time Electronically viewed and signed by .Ronen Torres MD, on 04/08/2017 22:24 .S/
[2017-04-09] VITALS (47 sets, daily range): BP systolic 84–186; BP diastolic 51–81; PULSE 55–142; RESP 14–30
[2017-04-09] MEDS ORDERED: HALOPERIDOL 5 MG INJ IM PRN (00:30)
[2017-04-09] MEDS ORDERED: INSULIN ASPART [NOVOLOG] 3 ML PEN SC SCH (01:00)
[2017-04-09] MEDS: PIPER-TAZO 3.375 GM IV (PMX) 100 ML IVPB SCH ×4 (01:17→18:11)
[2017-04-09] MEDS: Insulin NOVOLOG SS MODERATE Algorithm(NPO/TPN/ENTERAL FEEDS) SC SCH ×6 (01:23→20:37)
[2017-04-09] MEDS: ACCU-CHEK XX SCH (02:00)
[2017-04-09] MEDS: HALOPERIDOL 5 MG INJ IM PRN (02:00)
[2017-04-09 03:30] LABS: AADO2 Arterial 25.1 mmHg (7.0-24.0); Allen Test ACCEPTAB; Arterial Base Excess -3.3 mmol/L (-3.0-3); Arterial COHb 0 % (0.0-3.0); Arterial Fraction of Oxyhgb 96.6 % (93.0-99.0); Arterial HCO3 19.3 mmol/L (22.0-26.0); Arterial MetHb 0.4 % (0.0-1.5); Arterial Total Hemglobin 15.4 g/dl (12.0-18.0); MODE ROOM AIR
[2017-04-09] MEDS ORDERED: LEVALBUTEROL (NEB) 0.63 MG/3 ML AMP HHN PRN (03:30)
--- NOTE | 2017-04-09 04:06 | RADRPT ---
PROCEDURE: XR Chest. CLINICAL INDICATION: Shortness of breath. Respiratory failure. TECHNIQUE: Portable single view of the chest COMPARISON: 04/07/2017 FINDINGS: Endotracheal tube is now seen in good position. Top normal heart size. Atherosclerotic change of t he aorta. Reduced lung volumes without definite focal infiltrate. Slight bibasilar crowding. No p leural effusion or pneumothorax is seen. Degenerative change of the spine. IMPRESSION: New endotracheal tube in good position. Otherwise stable exam. RPTAT: HLBE Amy Carvalho Physician Date Time Electronically viewed and signed by Amy Carvalho Physician on 04/09/2017 04:05 RYAN/
[2017-04-09] MEDS: niCARdipine 50 MG in SOD CHLORIDE 0.9% 480 ML IV SCH (04:24)
[2017-04-09 04:59] LABS: AADO2 Arterial 123.2 mmHg (7.0-24.0); Allen Test ACCEPTAB; Arterial Base Excess -0.1 mmol/L (-3.0-3); Arterial COHb 0.3 % (0.0-3.0); Arterial Fraction of Oxyhgb 97.8 % (93.0-99.0); Arterial HCO3 20.7 mmol/L (22.0-26.0); Arterial MetHb 0.4 % (0.0-1.5); Arterial Total Hemglobin 13.9 g/dl (12.0-18.0); MODE VENT - AC
[2017-04-09] MEDS: PROPOFOL 100 ML IV SCH ×3 (06:37→17:14)
[2017-04-09 06:52] LABS: CALCIUM 7.9 mg/dl (8.4-10.2); CREATININE 0.96 mg/dl (0.61-1.24); POTASSIUM 3.2 mmol/L (3.5-5.1)
[2017-04-09] MEDS ORDERED: ETOMIDATE 20 MG INJ ONE (07:00)
[2017-04-09] MEDS ORDERED: SUCCINYLCHOLINE CHLORIDE 100 MG/5 ML SYG IV ONE (07:00)
[2017-04-09] MEDS: POTASSIUM CHLORIDE 20 MEQ in DEXTROSE 5%-0.9% NACL 1,000 ML IV SCH ×2 (07:46→17:23)
[2017-04-09] MEDS: LEVALBUTEROL (HFA) 15 GM INHALER INH SCH ×7 (08:00→20:47)
[2017-04-09] MEDS: DOCUSATE SODIUM 100 MG CAP PO SCH ×2 (08:02→20:37)
[2017-04-09] MEDS: FAMOTIDINE 20 MG INJ IV SCH ×2 (08:06→20:36)
[2017-04-09] MEDS: INSULIN GLARGINE [LANtus] 3 ML PEN SC SCH (08:06)
--- NOTE | 2017-04-09 10:54 | CONS ---
DATE OF ADMISSION: 04/07/2017 DATE OF CONSULTATION: 04/09/2017 REASON FOR CONSULTATION: Ventilator management. HISTORY OF PRESENT ILLNESS: This is an 82-year-old gentleman, with history of craniotomy, diabetes mellitus, brought to the emergency room for altered mental status. Per chart, he was more lethargic than normal. Upon presentation in the emergency room, the patient was noted to be febrile with leukocytosis, lactic acidosis. A CT brain showed a 5 mm rounded increased density in the left upper thalamus concerning for possible acute bleed. Per chart, patient is status post right frontal and temporal craniotomy with underlying encephalomalacia with lacunar infarcts. Currently patient continues mechanical ventilation, nicardipine drip for blood pressure control. Pending further Neurosurgery recommendations. PAST MEDICAL HISTORY: 1. Intracranial hemorrhage. 2. Diabetes mellitus. 3. Hypertension. MEDICATION: Per chart. PHYSICAL EXAMINATION: GENERAL APPEARANCE: Elderly-appearing gentleman, intubated on mechanical ventilation. Appears comfortable at rest. VITAL SIGNS: Temperature 98, pulse is 63, blood pressure 102/60, O2 sat 96 percent. FiO2 40 percent. Orally intubated. NECK: Neck is supple. No JVD. No lymphadenopathy. CARDIAC: S1, S2. No added sounds or murmurs. LUNGS: Diminished air entry bilaterally. ABDOMEN: Abdomen is soft, nontender. No guarding or rebound. EXTREMITIES: No clubbing, cyanosis or edema. NEUROLOGIC: Generalized weakness. LABORATORY: White count 15.6, hemoglobin 13.5, BUN 11, creatinine 0.96. Arterial blood gas: PH 7.5, pCO2 24, PO2 133. Urinalysis unremarkable. INR was 1.03. Chest x-ray shows no infiltrates or effusions. CT head findings as noted above. IMPRESSION: 1. Concern for possible acute CVA on underlying chronic neurological damage. 2. Hypoxemic respiratory failure secondary to neurological deficits. 3. Sepsis with urinary tract infection. 4. History of diabetes mellitus. PLAN: 1. Continue antibiotics. 2. Continue mechanical ventilation. 3. Neurosurgical recommendations. 4. DVT and GI prophylaxis. Dictated By: Jayjay Ford MD /[email or web address]/jade /Document#: [id number]
--- NOTE | 2017-04-09 11:45 | CONS ---
Date/Time of Note Date/Time of Note DATE: 04/09/17 TIME: 11:40 Assessment/Plan Assessment/Plan Additional Assessment/Plan This is a 82-year-old gentleman with acute mental status changes according to family member brought to emergency room [facility] workup still in progress. Will contact family members schedule if family conference as soon as they are available. Consultation Date/Type/Reason Admit Date/Time Type of Consultation: Palliative care Hx of Present Illness Stated note for patient admission and first consultation with palliative care service April 07, 2017. At that time patient was seen in the intensive care unit no family members available chart was reviewed 82-year-old gentleman admitted with mental status changes seen by neurosurgical consultation. Patient has a remote history of aneurysm algia mental status changes were being worked up there was no need for neurosurgical intervention. She has a history of craniotomy many years ago 1992 . Patient was brought in by family members. While in the intensive care unit he has been severely altered and agitated, noncommunicative it is unclear as is his baseline. And we have no medical records to research. Subjective hx not possible: pt non-verbal Past Surgical History Past Surgical Hx: other (Craniotomy) Social History Alcohol Use: other Smoking Status: Never smoker Drug Use: none Exam/Review of Systems Vital Signs Vitals Vital Signs Date Time Temp Pulse Resp B/P Pulse Ox O2 Delivery O2 Flow Rate FiO2 04/09/17 11:00 58 18 109/58 100 Mechanical Ventilator 04/09/17 08:00 30 04/09/17 07:00 98.8 04/09/17 03:30 2.0 Intake and Output 04/08/17 04/08/17 04/09/17 14:59 22:59 06:59 Intake Total 1225 ml 1800 ml 1425 ml Output Total 415 ml 335 ml 320 ml Balance 810 ml 1465 ml 1105 ml Exam Constitutional: non-verbal Head: atraumatic, normocephalic, No hematomas, No lacerations, No other Neck: non-tender, supple, No bruits, No jvd, No masses, No nuchal rigidity, No other, No thyromegaly Respiratory: congested cough, crackles/rales Cardiovascular: nl pulses, regular rate and rhythm, No S3, No S4, No bruits, No diastolic murmur, No edema, No gallop, No irregular rhythm, No jugular venous distention (JVD), No murmurs/extra sounds, No other, No rub, No systolic murmur Neurological: other (Agitated flailing in bed non-purposefully, roving eyes does not follow any simple command cranial nerves difficult to evaluate grossly unremarkable) Results Result Diagram: 04/08/17 0453 04/09/17 0510 Results 24 hrs Laboratory Tests Test 04/08/17 11:56 04/08/17 17:42 04/08/17 18:45 04/08/17 21:06 Bedside Glucose 206 145 187 Potassium Level 3.3 L Lactic Acid Level 1.3 Magnesium Level 3.2 H Test 04/09/17 01:19 04/09/17 03:02 04/09/17 05:00 04/09/17 05:10 Bedside Glucose 196 Blood Gas Specimen Source Blood arterial Blood arterial Arterial Blood Date Drawn 04/09/2017 3:15:38 AM 04/09/2017 4:48:43 AM Arterial Blood pH (Temp corrected) 7.444 7.543 H Arterial Blood pCO2 (Temp correct) 28.8 L 24.6 L Arterial Blood pO2 (Temp corrected) 90.1 H 133.7 H Arterial Blood HCO3 19.3 L 20.7 L Arterial Blood Base Excess -3.3 L -0.1 Arterial Blood Oxygen Saturation 97.0 98.5 Kingsley Test ACCEPTAB ACCEPTAB Arterial Blood Gas Puncture Site Right Radial Right Radial Arterial Blood Carboxyhemoglobin 0 0.3 Arterial Blood Methemoglobin 0.4 0.4 Blood Gas A-a O2 Differential 25.1 H 123.2 H Oxyhemoglobin Percent 96.6 97.8 Total Hemoglobin 15.4 13.9 Blood Gas Temperature 37.0 37.0 Blood Gas Actual Respiration Rate 32 24 Blood Gas Modality ROOM AIR VENT - AC FiO2 21.0 40.0 Blood Gas Notified Whom STEPHANIE [employer] Blood Gas Notified Time 04/09/2017 3:30:23 AM 04/09/2017 4:59:14 AM Blood Gas Respiration Rate 24.0 Blood Gas Tidal Volume 550.0 Sodium Level 144 Potassium Level 3.2 L Chloride Level 112 H Carbon Dioxide Level 23 Anion Gap 12 Blood Urea Nitrogen 11 Creatinine 0.96 Glucose Level 133 # Calcium Level 7.9 L Test 04/09/17 06:16 04/09/17 07:38 Bedside Glucose 127 167 Medications Medications Current Medications Labetalol HCl (Labetalol) 10 mg Q10M PRN IV elebated BP; Start 04/07/17 at 05:30 Acetaminophen (Tylenol Tab) 650 mg Q4H PRN PO TEMP GREATER THAN 99.6F; Start at 05:30 Docusate Sodium (Colace) 100 mg BID PO Last administered on 04/07/17 09:45; Admin Dose 100 MG; Start 04/07/17 at 09:00 Ondansetron HCl (Zofran Inj) 4 mg Q6H PRN IV NAUSEA AND/OR VOMITING; Start 04/07 at 05:30 Lorazepam (Ativan) 1 mg Q2H PRN IV ANXIETY Last administered on 04/08/17 04:19 ; Admin Dose 1 MG; Start 04/07/17 at 05:30 Magnesium Hydroxide (Milk Of Mag) 30 ml DAILY PRN PO CONSTIPATION; Start at 05:30 Bisacodyl (Dulcolax) 5 mg DAILY PRN PO CONSTIPATION; Start 04/07/17 at 05:30 Bisacodyl (Dulcolax Supp) 10 mg DAILY PRN [place] CONSTIPATION Last administered on 04/07/17 15:52; Admin Dose 10 MG; Start 04/07/17 at 05:30 Diagnostic Test (Pha) (Accu-Chek) 1 ea 02 XX ; Start 04/08/17 at 02:00 Insulin Glargine (Lantus) 12 unit DAILY@08 SC Last administered on 04/09/17 08: 06; Admin Dose 12 UNIT; Start 04/07/17 at 08:00 Miscellaneous Information 1 ea NOTE XX ; Start 04/07/17 at 05:30 Glucose (Glutose) 15 gm Q15M PRN PO DECREASED GLUCOSE; Start 04/07/17 at 05:30 Glucose (Glutose) 22.5 gm Q15M PRN PO DECREASED GLUCOSE; Start 04/07/17 at 05:30 Dextrose (D50w Syringe) 25 ml Q15M PRN IV DECREASED GLUCOSE; Start 04/07/17 at 05:30 Dextrose (D50w Syringe) 50 ml Q15M PRN IV DECREASED GLUCOSE; Start 04/07/17 at 05:30 Glucagon (Glucagen) 1 mg Q15M PRN IM DECREASED GLUCOSE; Start 04/07/17 at 05:30 Glucose 15 gm 15 gm Q15M PRN BUCCAL DECREASED GLUCOSE; Start 04/07/17 at 05:30 Piperacillin Sod/ Tazobactam Sod (Zosyn 3.375gm/ 100 ml (Pmx)) 100 ml @ 200 mls /hr Q6 IVPB Last administered on 04/09/17 11:25; Admin Dose 200 MLS/HR; Start 04/07/17 at 12:00 Famotidine (Pepcid Iv) 20 mg BID IV Last administered on 04/09/17 08:06; Admin Dose 20 MG; Start 04/08/17 at 21:00 Haloperidol 5 mg 5 mg Q4H PRN IM ANXIETY Last administered on 04/09/17 02:00; Admin Dose 5 MG; Start 04/08/17 at 21:30 Potassium Chloride/Dextrose/ Sodium Chloride (KCl/D5-NS) 1,010 ml @ 100 mls/hr Q10H6M IV Last administered on 04/08/17 21:40; Admin Dose 100 MLS/HR; Start 04/08/17 at 21:40 Insulin Aspart (Adult SC Insulin - Moder... Q4 SC Last administered on 08:07; Admin Dose 2 UNIT; Start 04/09/17 at 01:00 Propofol (Diprivan) 100 ml @ 1.791 mls/ hr Q12H IV Last administered on 06:37; Admin Dose 1.791 MLS/HR; Start 04/09/17 at 04:00 Levalbuterol (Xopenex Hfa) 2 puff Q6 INH Last administered on 04/09/17 08:34; Admin Dose 2 PUFF; Start 04/09/17 at 06:00 IVIS VANN Apr 09, 2017 11:45
[2017-04-09] MEDS ORDERED: POTASSIUM CHLORIDE 30 MEQ in DEXTROSE 5% 250 ML IVPB ONE (13:30)
--- NOTE | 2017-04-09 14:06 | CONS ---
Date/Time of Note Date/Time of Note DATE: 04/09/17 TIME: 14:05 Assessment/Plan Assessment/Plan Chief Complaint/Hosp Course Stated note for patient admission and first consultation with palliative care service April 07, 2017. At that time patient was seen in the intensive care unit no family members available chart was reviewed 82-year-old gentleman admitted with mental status changes seen by neurosurgical consultation. Patient has a remote history of aneurysm algia mental status changes were being worked up there was no need for neurosurgical intervention. She has a history of craniotomy many years ago 1992 . Patient was brought in by family members. While in the intensive care unit he has been severely altered and agitated, noncommunicative it is unclear as is his baseline. And we have no medical records to research. Problems: Additional Assessment/Plan She required intubation and sedation otherwise he is hemodynamically stable and workup for his altered mental stab is still being worked up. I will schedule family conference. Consultation Date/Type/Reason Admit Date/Time Apr 07, 2017 at 05:27 Initial Consult Date 04/07/17 Type of Consultation: Palliative care Exam/Review of Systems Vital Signs Vitals Vital Signs Date Time Temp Pulse Resp B/P Pulse Ox O2 Delivery O2 Flow Rate FiO2 04/09/17 13:00 58 18 123/60 100 Mechanical Ventilator 04/09/17 12:00 98.1 04/09/17 11:16 30 04/09/17 03:30 2.0 Intake and Output 04/08/17 04/08/17 04/09/17 15:00 23:00 07:00 Intake Total 1135 ml 1940 ml 1300 ml Output Total 425 ml 340 ml 300 ml Balance 710 ml 1600 ml 1000 ml Results Result Diagram: 04/08/17 0453 04/09/17 0510 Results 24 hrs Laboratory Tests Test 04/08/17 17:42 04/08/17 18:45 04/08/17 21:06 04/09/17 01:19 Bedside Glucose 145 187 196 Potassium Level 3.3 L Lactic Acid Level 1.3 Magnesium Level 3.2 H Test 04/09/17 03:02 04/09/17 05:00 04/09/17 05:10 04/09/17 06:16 Blood Gas Specimen Source Blood arterial Blood arterial Arterial Blood Date Drawn 04/09/2017 3:15:38 AM 04/09/2017 4:48:43 AM Arterial Blood pH (Temp corrected) 7.444 7.543 H Arterial Blood pCO2 (Temp correct) 28.8 L 24.6 L Arterial Blood pO2 (Temp corrected) 90.1 H 133.7 H Arterial Blood HCO3 19.3 L 20.7 L Arterial Blood Base Excess -3.3 L -0.1 Arterial Blood Oxygen Saturation 97.0 98.5 Kingsley Test ACCEPTAB ACCEPTAB Arterial Blood Gas Puncture Site Right Radial Right Radial Arterial Blood Carboxyhemoglobin 0 0.3 Arterial Blood Methemoglobin 0.4 0.4 Blood Gas A-a O2 Differential 25.1 H 123.2 H Oxyhemoglobin Percent 96.6 97.8 Total Hemoglobin 15.4 13.9 Blood Gas Temperature 37.0 37.0 Blood Gas Actual Respiration Rate 32 24 Blood Gas Modality ROOM AIR VENT - AC FiO2 21.0 40.0 Blood Gas Notified Whom UP Shaan [employer] Blood Gas Notified Time 04/09/2017 3:30:23 AM 04/09/2017 4:59:14 AM Blood Gas Respiration Rate 24.0 Blood Gas Tidal Volume 550.0 Sodium Level 144 Potassium Level 3.2 L Chloride Level 112 H Carbon Dioxide Level 23 Anion Gap 12 Blood Urea Nitrogen 11 Creatinine 0.96 Glucose Level 133 # Calcium Level 7.9 L Bedside Glucose 127 Test 04/09/17 07:38 04/09/17 13:03 Bedside Glucose 167 168 Medications Medications Current Medications Labetalol HCl (Labetalol) 10 mg Q10M PRN IV elebated BP; Start 04/07/17 at 05:30 Acetaminophen (Tylenol Tab) 650 mg Q4H PRN PO TEMP GREATER THAN 99.6F; Start at 05:30 Docusate Sodium (Colace) 100 mg BID PO Last administered on 04/07/17 09:45; Admin Dose 100 MG; Start 04/07/17 at 09:00 Ondansetron HCl (Zofran Inj) 4 mg Q6H PRN IV NAUSEA AND/OR VOMITING; Start 04/07 at 05:30 Lorazepam (Ativan) 1 mg Q2H PRN IV ANXIETY Last administered on 04/08/17 04:19 ; Admin Dose 1 MG; Start 04/07/17 at 05:30 Magnesium Hydroxide (Milk Of Mag) 30 ml DAILY PRN PO CONSTIPATION; Start at 05:30 Bisacodyl (Dulcolax) 5 mg DAILY PRN PO CONSTIPATION; Start 04/07/17 at 05:30 Bisacodyl (Dulcolax Supp) 10 mg DAILY PRN [place] CONSTIPATION Last administered on 04/07/17 15:52; Admin Dose 10 MG; Start 04/07/17 at 05:30 Diagnostic Test (Pha) (Accu-Chek) 1 ea 02 XX ; Start 04/08/17 at 02:00 Insulin Glargine (Lantus) 12 unit DAILY@08 SC Last administered on 04/09/17 08: 06; Admin Dose 12 UNIT; Start 04/07/17 at 08:00 Miscellaneous Information 1 ea NOTE XX ; Start 04/07/17 at 05:30 Glucose (Glutose) 15 gm Q15M PRN PO DECREASED GLUCOSE; Start 04/07/17 at 05:30 Glucose (Glutose) 22.5 gm Q15M PRN PO DECREASED GLUCOSE; Start 04/07/17 at 05:30 Dextrose (D50w Syringe) 25 ml Q15M PRN IV DECREASED GLUCOSE; Start 04/07/17 at 05:30 Dextrose (D50w Syringe) 50 ml Q15M PRN IV DECREASED GLUCOSE; Start 04/07/17 at 05:30 Glucagon (Glucagen) 1 mg Q15M PRN IM DECREASED GLUCOSE; Start 04/07/17 at 05:30 Glucose 15 gm 15 gm Q15M PRN BUCCAL DECREASED GLUCOSE; Start 04/07/17 at 05:30 Piperacillin Sod/ Tazobactam Sod (Zosyn 3.375gm/ 100 ml (Pmx)) 100 ml @ 200 mls /hr Q6 IVPB Last administered on 04/09/17 11:25; Admin Dose 200 MLS/HR; Start 04/07/17 at 12:00 Famotidine (Pepcid Iv) 20 mg BID IV Last administered on 04/09/17 08:06; Admin Dose 20 MG; Start 04/08/17 at 21:00 Haloperidol 5 mg 5 mg Q4H PRN IM ANXIETY Last administered on 04/09/17 02:00; Admin Dose 5 MG; Start 04/08/17 at 21:30 Potassium Chloride/Dextrose/ Sodium Chloride (KCl/D5-NS) 1,010 ml @ 100 mls/hr Q10H6M IV Last administered on 04/08/17 21:40; Admin Dose 100 MLS/HR; Start 04/08/17 at 21:40 Insulin Aspart (Adult SC Insulin - Moder... Q4 SC Last administered on 13:05; Admin Dose 2 UNIT; Start 04/09/17 at 01:00 Propofol (Diprivan) 100 ml @ 1.791 mls/ hr Q12H IV Last administered on 06:37; Admin Dose 1.791 MLS/HR; Start 04/09/17 at 04:00 Levalbuterol 2 puff 2 puff Q6 INH Last administered on 04/09/17 13:53; Admin Dose 2 PUFF; Start 04/09/17 at 06:00 Potassium Chloride/Dextrose (KCl/D5W) 265 ml @ 88.333 mls/ hr ONCE ONCE IVPB ; Start 04/09/17 at 13:30; Stop 04/09/17 at 16:29 IVIS VANN Apr 09, 2017 14:06
[2017-04-10] VITALS (73 sets, daily range): BP systolic 98–164; BP diastolic 55–113; PULSE 55–76; RESP 13–25
[2017-04-10] MEDS: POTASSIUM CHLORIDE 20 MEQ in DEXTROSE 5%-0.9% NACL 1,000 ML IV SCH ×2
[2017-04-10] MEDS: PIPER-TAZO 3.375 GM IV (PMX) 100 ML IVPB SCH ×5 (00:55→23:39)
[2017-04-10] MEDS: PROPOFOL 100 ML IV SCH ×3 (00:55→19:23)
[2017-04-10] MEDS: Insulin NOVOLOG SS MODERATE Algorithm(NPO/TPN/ENTERAL FEEDS) SC SCH ×6 (01:45→20:35)
[2017-04-10] MEDS: ACCU-CHEK XX SCH (01:47)
[2017-04-10] MEDS: LEVALBUTEROL (HFA) 15 GM INHALER INH SCH ×4 (01:55→19:12)
[2017-04-10 05:28] LABS: BASOPHILS % 0.2 % (0.0-2.0); EOSINOPHILS # 0.2 10^3/ul (0.0-0.5); EOSINOPHILS % 1.6 % (0.0-7.0); HEMATOCRIT 35.6 % (42.0-52.0); HEMOGLOBIN 12.6 g/dl (14.0-18.0); LYMPHOCYTES # 1.5 10^3/ul (0.8-2.9); LYMPHOCYTES % 13.4 % (15.0-51.0); MEAN CORPUSCULAR HGB CONC 35.4 g/dl (32.0-37.0); MEAN CORPUSCULAR VOLUME 87.5 fl (82.0-101.0); MEAN PLATELET VOLUME 10.2 fl (7.4-10.4); MONOCYTE # 0.6 10^3/ul (0.3-0.9); MONOCYTES % 5.6 % (0.0-11.0); NEUTROPHILS % 78.7 % (39.0-77.0); PLATELET COUNT 211 10^3/UL (140-415); RED BLOOD COUNT 4.07 10^6/ul (4.70-6.10); RED CELL DISTRIBUTION WIDTH 12.8 % (11.5-14.5); WHITE BLOOD COUNT 10.8 10^3/ul (4.8-10.8)
--- NOTE | 2017-04-10 05:45 | TS ---
DATE OF ADMISSION: 04/07/2017 PRESENTING COMPLAINT: Altered level of consciousness. HISTORY OF PRESENT ILLNESS: Patient is an 82-year-old male, who presented to the emergency room because of acute alteration in consciousness, found by his . 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 When he came into the emergency room, a CT scan showed a 5 mm rounded area of increased density in the left upper thalamus, possibly solar manufacturer's representative of an acute bleed, as well as chronic lacunar infarct in the bilateral central centrum semiovale and encephalomalacia in the right temporal region. The patient was also found to be septic thought to be secondary to a UTI and probable pneumonia with a hypertensive emergency and was admitted to the intensive care unit for further management. The patient was admitted to the intensive care unit, and he was reviewed by neurosurgery, Dr. Altamirano. Dr. Altamirano saw the patient and also reviewed the imaging studies, which included the followin. Brain MRI with MRA that was an extremely limited study. No large vascular malformation or intracranial aneurysm. Evaluation of distal 1st and 2nd order branches of intracranial vessels is nondiagnostic due to patient motion. 2. Followup head CTA. This showed 1. Limited study due to extensive motion artifact. 2. No evidence of cerebral aneurysm of the proximal [place] to the level of the proximal 2nd order branches of the [place]. Extensive soft and calcific atherosclerotic plaques with associated multifocal severe, nearly completely occlusive stenosis in the right vertebral artery, but it is a nondominant artery. There was also a short segment of 50 percent luminal stenosis in the left vertebral artery, which is the dominant artery. 3. There was also a 50 percent atherosclerotic stenosis in the V2 segment of the right cerebral artery at C2-C3, the same thing at C1-C2. There is also a lot of plaque causing stenosis as well in the V3 segment and then diffuse intracranial atherosclerotic disease with multifocal irregular stenosis most prominent in the cavernous internal carotid artery segments which resulted in maximal stenosis, moderate on the left and mild to moderate on the right. 4. There is also bilateral sinus inflammatory changes. 3. Followup brain CT 24 hours after admission. It showed no significant interval change. Stable appearance of 5 x 4 mm left thalamic hemorrhage with surrounding vasogenic edema. No significant mass effect, midline shift, or evidence of hydrocephalus. Moderate peripheral and central cerebral volume loss. Severe patchy and confluent periventricular and subcortical white matter lesions, likely related to chronic microangiopathic changes and a remote infarct in the right posterior temporal lobe. Based on these findings, the final neurosurgical recommendation on April: We believe the patient had a small hemorrhage. Neurosurgeon did not feel that the patient's altered mental status was attributable to that. Based on that, there was no indication for any acute neurosurgical intervention. The patient was deemed stable for transfer to [place], if necessary, from a neurological standpoint. Unfortunately, the night of April 08, the patient became more agitated and more confused with significant respiratory distress and ended up having to be intubated and put on ventilator support. During the intubation process, there was concern for possible mucus plug. Pulmonary consultation has been obtained, and Dr. Ford has seen the patient, and he recommends continuing antibiotics, continue mechanical ventilation, and see how he does. He also has deemed patient stable for transfer back to [facility] to ICU level of care. FINAL DIAGNOSES: As follows. 1. Acute alteration in mental status for which course is still fairly unclear at this time. Could be secondary to sepsis superimposed on a small thalamic hemorrhage. 2. Small acute thalamic hemorrhagic stroke, 5 x 4 mm, with surrounding vasogenic edema. 3. Moderate diffuse atherosclerosis causing diffuse stenosis of the intracranial arteries. 4. Sepsis secondary to probable urinary tract infection (UTI) as well as probable aspiration pneumonia. 5. Multiple previous cerebrovascular accidents (CVAs) in the past. 6. 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 7. Acute leukocytosis, which could be reactive, but this is secondary to sepsis. 8. Diabetes mellitus, type 2, with very good in-house control. 9. Acute on chronic kidney disease, improving. 10. Hypokalemia, replete as needed. 11. Hypertensive urgency. Status post nicardipine drip. DISPOSITION: ICU [facility]. RECOMMENDATIONS: Continue ICU care. Recommend also to continue IV antibiotics. The patient would definitely get benefit from neurology review, which has not been done yet; therefore, interventions will depend on his response to current intervention and his overall clinical course. There is no family at the bedside at this time. I spoke with the nursing staff. I have spoken to briefcase sewer. Overall critical time so far has been about 40 minutes. Dictated By: Sarah Leary MD /rossana/timothy /Document#: [id number] [facility]ITAL[facility]aan
[2017-04-10 06:03] LABS: CALCIUM 7.6 mg/dl (8.4-10.2); CREATININE 0.89 mg/dl (0.61-1.24); POTASSIUM 3.1 mmol/L (3.5-5.1)
[2017-04-10] MEDS: DOCUSATE SODIUM 100 MG CAP PO SCH ×2 (07:46→20:31)
[2017-04-10] MEDS: LABETALOL HCL 20MG INJ IV PRN ×3 (07:48→15:39)
[2017-04-10] MEDS: FAMOTIDINE 20 MG INJ IV SCH ×2 (07:52→20:31)
[2017-04-10] MEDS: INSULIN GLARGINE [LANtus] 3 ML PEN SC SCH (08:33)
[2017-04-10] MEDS ORDERED: niCARdipine-NS 0.1MG/ML DRIP 200 ML ONE (09:50)
[2017-04-10] MEDS ORDERED: niCARdipine-NS 0.1MG/ML DRIP 200 ML IV SCH (10:00)
--- NOTE | 2017-04-10 10:36 | CONS ---
Date/Time of Note Date/Time of Note DATE: 04/10/17 TIME: 10:35 Consult Date/Type/Reason Admit Date/Time Apr 07, 2017 at 05:27 Initial Consult Date 04/07/17 Type of Consultation: Pulmonary pulmonary Subjective Patient remains intubated on mechanical ventilation. Opens eyes and follows simple commands. No respiratory distress no significant secretions. Objective Vital Signs Date Time Temp Pulse Resp B/P Pulse Ox O2 Delivery O2 Flow Rate FiO2 04/10/17 08:00 70 04/10/17 07:30 18 100 30 04/10/17 06:00 148/73 Mechanical Ventilator 04/10/17 04:00 98.5 04/09/17 03:30 2.0 Intake and Output 04/09/17 04/09/17 04/10/17 15:00 23:00 07:00 Intake Total 299.949 ml 619.634 ml 846.48 ml Output Total 255 ml 475 ml 900 ml Balance 44.949 ml 144.634 ml -53.52 ml Exam PHYSICAL EXAMINATION: GENERAL APPEARANCE: Elderly-appearing gentleman, intubated on mechanical ventilation. Appears comfortable at rest. VITAL SIGNS: NECK: Neck is supple. No JVD. No lymphadenopathy. CARDIAC: S1, S2. No added sounds or murmurs. LUNGS: Diminished air entry bilaterally. ABDOMEN: Abdomen is soft, nontender. No guarding or rebound. EXTREMITIES: No clubbing, cyanosis or edema. NEUROLOGIC: Generalized weakness. Results/Medications Result Diagram: 04/10/17 0425 04/10/17 0425 Results 24 hrs Laboratory Tests Test 04/09/17 13:03 04/09/17 17:01 04/09/17 20:36 04/10/17 01:31 Bedside Glucose 168 120 123 147 Test 04/10/17 04:25 04/10/17 05:28 04/10/17 08:24 White Blood Count 10.8 # Red Blood Count 4.07 L Hemoglobin 12.6 L Hematocrit 35.6 L Mean Corpuscular Volume 87.5 Mean Corpuscular Hemoglobin 31.0 Mean Corpuscular Hemoglobin Concent 35.4 Red Cell Distribution Width 12.8 Platelet Count 211 Mean Platelet Volume 10.2 Neutrophils % 78.7 H Lymphocytes % 13.4 L Monocytes % 5.6 Eosinophils % 1.6 Basophils % 0.2 Nucleated Red Blood Cells % 0.0 Neutrophils # (Manual) 8.5 H Lymphocytes # 1.5 Monocytes # 0.6 Eosinophils # 0.2 Basophils # 0.0 Nucleated Red Blood Cells # 0.0 Sodium Level 144 Potassium Level 3.1 L Chloride Level 114 H Carbon Dioxide Level 24 Anion Gap 9 Blood Urea Nitrogen 8 Creatinine 0.89 Glucose Level 136 Calcium Level 7.6 L Magnesium Level 1.8 Bedside Glucose 138 163 Medications Current Medications Labetalol HCl (Labetalol) 10 mg Q10M PRN IV elebated BP Last administered on 07:48; Admin Dose 10 MG; Start 04/07/17 at 05:30 Acetaminophen (Tylenol Tab) 650 mg Q4H PRN PO TEMP GREATER THAN 99.6F; Start at 05:30 Docusate Sodium (Colace) 100 mg BID PO Last administered on 04/10/17 07:46; Admin Dose 100 MG; Start 04/07/17 at 09:00 Ondansetron HCl (Zofran Inj) 4 mg Q6H PRN IV NAUSEA AND/OR VOMITING; Start 04/07 at 05:30 Lorazepam (Ativan) 1 mg Q2H PRN IV ANXIETY Last administered on 04/08/17 04:19 ; Admin Dose 1 MG; Start 04/07/17 at 05:30 Magnesium Hydroxide (Milk Of Mag) 30 ml DAILY PRN PO CONSTIPATION; Start at 05:30 Bisacodyl (Dulcolax) 5 mg DAILY PRN PO CONSTIPATION; Start 04/07/17 at 05:30 Bisacodyl (Dulcolax Supp) 10 mg DAILY PRN [place] CONSTIPATION Last administered on 04/07/17 15:52; Admin Dose 10 MG; Start 04/07/17 at 05:30 Diagnostic Test (Pha) (Accu-Chek) 1 ea 02 XX Last administered on 04/10/17 01: 47; Admin Dose 1 EA; Start 04/08/17 at 02:00 Insulin Glargine (Lantus) 12 unit DAILY@08 SC Last administered on 04/10/17 08: 33; Admin Dose 12 UNIT; Start 04/07/17 at 08:00 Miscellaneous Information 1 ea NOTE XX ; Start 04/07/17 at 05:30 Glucose (Glutose) 15 gm Q15M PRN PO DECREASED GLUCOSE; Start 04/07/17 at 05:30 Glucose (Glutose) 22.5 gm Q15M PRN PO DECREASED GLUCOSE; Start 04/07/17 at 05:30 Dextrose (D50w Syringe) 25 ml Q15M PRN IV DECREASED GLUCOSE; Start 04/07/17 at 05:30 Dextrose (D50w Syringe) 50 ml Q15M PRN IV DECREASED GLUCOSE; Start 04/07/17 at 05:30 Glucagon (Glucagen) 1 mg Q15M PRN IM DECREASED GLUCOSE; Start 04/07/17 at 05:30 Glucose 15 gm 15 gm Q15M PRN BUCCAL DECREASED GLUCOSE; Start 04/07/17 at 05:30 Piperacillin Sod/ Tazobactam Sod (Zosyn 3.375gm/ 100 ml (Pmx)) 100 ml @ 200 mls /hr Q6 IVPB Last administered on 04/10/17 05:32; Admin Dose 200 MLS/HR; Start 04/07/17 at 12:00 Famotidine (Pepcid Iv) 20 mg BID IV Last administered on 04/10/17 07:52; Admin Dose 20 MG; Start 04/08/17 at 21:00 Haloperidol 5 mg 5 mg Q4H PRN IM ANXIETY Last administered on 04/09/17 02:00; Admin Dose 5 MG; Start 04/08/17 at 21:30 Potassium Chloride/Dextrose/ Sodium Chloride (KCl/D5-NS) 1,010 ml @ 100 mls/hr Q10H6M IV Last administered on 04/10/17 00:00; Admin Dose 100 MLS/HR; Start 04/08/17 at 21:40 Insulin Aspart (Adult SC Insulin - Moder... Q4 SC Last administered on 08:26; Admin Dose 2 UNIT; Start 04/09/17 at 01:00 Propofol 100 ml @ 1.791 mls/ hr Q12H IV Last administered on 04/10/17 07:06; Admin Dose 5.34 MLS/HR; Start 04/09/17 at 04:00 Nicardipine HCl (Cardene Iv) 200 ml @ 50 mls/hr TITRATE IV Last administered on 04/10/17 10:16; Admin Dose 50 MLS/HR; Start 04/10/17 at 10:00 Assessment/Plan Chief Complaint/Hosp Course IMPRESSION: 1. encephalopathy toxic metabolic. No evidence of new CVA on CT scan. 2. Hypoxemic respiratory failure secondary to neurological deficits. 3. Sepsis with urinary tract infection. 4. History of diabetes mellitus. PLAN: 1. Continue antibiotics. 2. Continue mechanical ventilation. Patient potentially wean able today however pending transfer to [facility]. 3. Neurosurgical recommendations. 4. DVT and GI prophylaxis. Agree with transfer back to [place]. Problems: JAYLEN CORONA MD, [facility] Apr 10, 2017 10:36
[2017-04-10] MEDS ORDERED: POTASSIUM CHLORIDE 50 ML IVPB ONE (11:00)
[2017-04-10] MEDS: POTASSIUM CHLORIDE 50 ML IVPB SCH ×4 (11:43→14:08)
[2017-04-10] MEDS: D5-NS + KCL 20 MEQ 1,000 ML IV SCH ×2 (11:45→17:20)
[2017-04-10] MEDS ORDERED: NIFEdipine (XL) 60 MG TAB PO SCH (16:00)
[2017-04-10] MEDS: hydrALAzine 20 MG INJ IV PRN (17:14)
[2017-04-10] MEDS: LORAZEPAM 2 MG INJ IV PRN (17:52)
[2017-04-10] MEDS: NIFEdipine 10 MG CAP PO SCH ×2 (17:54→23:39)
--- NOTE | 2017-04-10 22:48 | PN ---
Date/Time of Note Date/Time of Note DATE: 04/10/17 TIME: 22:45 Assessment/Plan VTE Prophylaxis VTE Prophylaxis Intervention: SCD's VTE Contraindication Reason: hemorrhagic cerebral infarction Lines/Catheters IV Catheter Type (from Nrs): Peripheral IV Urinary Cath still in place: Yes Reason Cath still needed: other (indicate) (intubated and sedated) Assessment/Plan Assessment/Plan 82 yo M brought in for acute alteration in mental status managed as follows: 1. Acute resp failure: Remains on full Ventilator support 2. Acute alteration in mental status for which cause is still fairly unclear at this time. Thalamic hemorrhage on CT scan is too small to cause symptoms per Neurosurgery, could be secondary to sepsis superimposed on a small thalamic hemorrhage with a baseline of aphasia 3. Small acute thalamic hemorrhagic stroke, 5 x 4 mm, with surrounding vasogenic edema. 4. Moderate diffuse atherosclerosis causing diffuse stenosis of the intracranial arteries. No evidence of ischemic event found on Brain MRI however 5. Sepsis secondary to probable urinary tract infection (UTI) as well as probable aspiration pneumonia. 6. Multiple previous cerebrovascular accidents (CVAs) in the past. 7. 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 8. Diabetes mellitus, type 2, with very good in-house control. 9. Acute on chronic kidney disease, improving. 10. Hypokalemia, replete as needed. 11. Hypertensive urgency: resolved but still requiring PRN meds to keep BP at goal PLAN Continue ICU care and vent mgt OK to transfer to when bed available Start Oral antihypertensives to keep recommended goal / PRNS Continue abx Replete electrolytes Commence tube feeds by tomorrow if no transfer Further interventions per clinical course PROPHYLAXIS : Pepcid / SCDs CC time >40mins Subjective 24 Hr Interval Summary Free Text/Dictation Patient seen Intubated and sedated for comfort, but no pressor support. No new overnight issues per nursing BP goes up when sedation is reduced. Weaning trials to commence if patient is not transferred today. Transfer pending bed availability. Exam/Review of Systems Vital Signs Vitals Vital Signs Date Time Temp Pulse Resp B/P Pulse Ox O2 Delivery O2 Flow Rate FiO2 04/10/17 18:45 65 18 105/62 100 04/10/17 17:00 30 04/10/17 16:00 98.7 04/10/17 06:00 Mechanical Ventilator 04/09/17 03:30 2.0 Intake and Output 04/09/17 04/09/17 04/10/17 15:00 23:00 07:00 Intake Total 299.949 ml 619.634 ml 946.48 ml Output Total 255 ml 475 ml 1300 ml Balance 44.949 ml 144.634 ml -353.52 ml Exam GENERAL: Intubated and comfortably sedated HEENT: IFRAH, Intubated, Vent settings noted , LUNGS: diffusely diminished and coarse BS HEART: S1, S2. No murmur, gallops or rubs. ABDOMEN: Soft, non distended, Normoactive bowel sounds. GENITOURINARY: Normal male external genitalia, Albert to bedside drainage EXTREMITIES: Mild 1+ nonpitting edema bilaterally, also some hand edema bilaterally NEUROLOGIC: The patient is currently sedated. SKIN: Otherwise, unremarkable. Results Result Diagram: 04/10/17 0425 04/10/17 0425 Results 24 hrs Laboratory Tests Test 04/10/17 01:31 04/10/17 04:25 04/10/17 05:28 04/10/17 08:24 Bedside Glucose 147 138 163 White Blood Count 10.8 # Red Blood Count 4.07 L Hemoglobin 12.6 L Hematocrit 35.6 L Mean Corpuscular Volume 87.5 Mean Corpuscular Hemoglobin 31.0 Mean Corpuscular Hemoglobin Concent 35.4 Red Cell Distribution Width 12.8 Platelet Count 211 Mean Platelet Volume 10.2 Neutrophils % 78.7 H Lymphocytes % 13.4 L Monocytes % 5.6 Eosinophils % 1.6 Basophils % 0.2 Nucleated Red Blood Cells % 0.0 Neutrophils # (Manual) 8.5 H Lymphocytes # 1.5 Monocytes # 0.6 Eosinophils # 0.2 Basophils # 0.0 Nucleated Red Blood Cells # 0.0 Sodium Level 144 Potassium Level 3.1 L Chloride Level 114 H Carbon Dioxide Level 24 Anion Gap 9 Blood Urea Nitrogen 8 Creatinine 0.89 Glucose Level 136 Calcium Level 7.6 L Magnesium Level 1.8 Test 04/10/17 12:26 04/10/17 17:27 04/10/17 20:34 Bedside Glucose 116 111 101 Medications Medications Current Medications Labetalol HCl (Labetalol) 10 mg Q10M PRN IV elebated BP Last administered on 15:39; Admin Dose 10 MG; Start 04/07/17 at 05:30 Acetaminophen (Tylenol Tab) 650 mg Q4H PRN PO TEMP GREATER THAN 99.6F; Start at 05:30 Docusate Sodium (Colace) 100 mg BID PO Last administered on 04/10/17 20:31; Admin Dose 100 MG; Start 04/07/17 at 09:00 Ondansetron HCl (Zofran Inj) 4 mg Q6H PRN IV NAUSEA AND/OR VOMITING; Start 04/07 at 05:30 Lorazepam (Ativan) 1 mg Q2H PRN IV ANXIETY Last administered on 04/10/17 17:52 ; Admin Dose 1 MG; Start 04/07/17 at 05:30 Magnesium Hydroxide (Milk Of Mag) 30 ml DAILY PRN PO CONSTIPATION; Start at 05:30 Bisacodyl (Dulcolax) 5 mg DAILY PRN PO CONSTIPATION; Start 04/07/17 at 05:30 Bisacodyl (Dulcolax Supp) 10 mg DAILY PRN [place] CONSTIPATION Last administered on 04/07/17 15:52; Admin Dose 10 MG; Start 04/07/17 at 05:30 Diagnostic Test (Pha) (Accu-Chek) 1 ea 02 XX Last administered on 04/10/17 01: 47; Admin Dose 1 EA; Start 04/08/17 at 02:00 Insulin Glargine (Lantus) 12 unit DAILY@08 SC Last administered on 04/10/17 08: 33; Admin Dose 12 UNIT; Start 04/07/17 at 08:00 Miscellaneous Information 1 ea NOTE XX ; Start 04/07/17 at 05:30 Glucose (Glutose) 15 gm Q15M PRN PO DECREASED GLUCOSE; Start 04/07/17 at 05:30 Glucose (Glutose) 22.5 gm Q15M PRN PO DECREASED GLUCOSE; Start 04/07/17 at 05:30 Dextrose (D50w Syringe) 25 ml Q15M PRN IV DECREASED GLUCOSE; Start 04/07/17 at 05:30 Dextrose (D50w Syringe) 50 ml Q15M PRN IV DECREASED GLUCOSE; Start 04/07/17 at 05:30 Glucagon (Glucagen) 1 mg Q15M PRN IM DECREASED GLUCOSE; Start 04/07/17 at 05:30 Glucose 15 gm 15 gm Q15M PRN BUCCAL DECREASED GLUCOSE; Start 04/07/17 at 05:30 Piperacillin Sod/ Tazobactam Sod (Zosyn 3.375gm/ 100 ml (Pmx)) 100 ml @ 200 mls /hr Q6 IVPB Last administered on 04/10/17 17:54; Admin Dose 200 MLS/HR; Start 04/07/17 at 12:00 Famotidine (Pepcid Iv) 20 mg BID IV Last administered on 04/10/17 20:31; Admin Dose 20 MG; Start 04/08/17 at 21:00 Haloperidol (Haldol) 5 mg Q4H PRN IM ANXIETY Last administered on 04/09/17 02: 00; Admin Dose 5 MG; Start 04/08/17 at 21:30 Insulin Aspart (Adult SC Insulin - Moder... Q4 SC Last administered on 08:26; Admin Dose 2 UNIT; Start 04/09/17 at 01:00 Propofol 100 ml @ 1.791 mls/ hr Q12H IV Last administered on 04/10/17 19:23; Admin Dose 5.373 MLS/HR; Start 04/09/17 at 04:00 Potassium Chloride/Dextrose/ Sod Cl (D5-NS + KCl 20 Meq) 1,000 ml @ 100 mls/hr Q10H IV Last administered on 04/10/17 17:20; Admin Dose 100 MLS/HR; Start at 11:00 Hydralazine HCl (Apresoline) 10 mg Q6H PRN IV sbp>140mmhg Last administered on 04/10/17 17:14; Admin Dose 10 MG; Start 04/10/17 at 16:00 Nifedipine (Procardia) 20 mg Q6 PO Last administered on 04/10/17 17:54; Admin Dose 20 MG; Start 04/10/17 at 18:00 Procedures Procedures PROCEDURE: XR Chest. CLINICAL INDICATION: Shortness of breath. Respiratory failure. TECHNIQUE: Portable single view of the chest COMPARISON: 04/07/2017 FINDINGS: Endotracheal tube is now seen in good position. Top normal heart size. Atherosclerotic change of the aorta. Reduced lung volumes without definite focal infiltrate. Slight bibasilar crowding. No pleural effusion or pneumothorax is seen. Degenerative change of the spine. IMPRESSION: New endotracheal tube in good position. Otherwise stable exam. RPTAT: HLBE Amy Carvalho, Physician Date Time Electronically viewed and signed by Amy Carvalho, Physician on 04/09/2017 04 :05 LE/ CC: HUSEYIN ALCAZAR MD,RANDY Meyer Apr 10, 2017 22:48
[2017-04-11] VITALS (59 sets, daily range): BP systolic 93–172; BP diastolic 52–145; PULSE 52–107; RESP 17–23
[2017-04-11] MEDS: Insulin NOVOLOG SS MODERATE Algorithm(NPO/TPN/ENTERAL FEEDS) SC SCH ×6 (01:00→21:00)
[2017-04-11] MEDS: LEVALBUTEROL (HFA) 15 GM INHALER INH SCH ×4 (01:18→20:00)
[2017-04-11] MEDS: ACCU-CHEK XX SCH (01:41)
[2017-04-11] MEDS: D5-NS + KCL 20 MEQ 1,000 ML IV SCH (04:00)
[2017-04-11 05:52] LABS: BASOPHILS % 0.1 % (0.0-2.0); EOSINOPHILS # 0.3 10^3/ul (0.0-0.5); EOSINOPHILS % 3.2 % (0.0-7.0); HEMATOCRIT 34.9 % (42.0-52.0); HEMOGLOBIN 12.1 g/dl (14.0-18.0); LYMPHOCYTES # 1.4 10^3/ul (0.8-2.9); MEAN CORPUSCULAR HEMOGLOBIN 30.3 pg (29.0-33.0); MEAN CORPUSCULAR HGB CONC 34.7 g/dl (32.0-37.0); MEAN CORPUSCULAR VOLUME 87.3 fl (82.0-101.0); MEAN PLATELET VOLUME 9.7 fl (7.4-10.4); MONOCYTE # 0.5 10^3/ul (0.3-0.9); MONOCYTES % 6.2 % (0.0-11.0); NEUTROPHILS % 72.9 % (39.0-77.0); PLATELET COUNT 205 10^3/UL (140-415); RED CELL DISTRIBUTION WIDTH 12.9 % (11.5-14.5); WHITE BLOOD COUNT 8.2 10^3/ul (4.8-10.8)
[2017-04-11] MEDS: PIPER-TAZO 3.375 GM IV (PMX) 100 ML IVPB SCH ×3 (06:19→17:43)
[2017-04-11] MEDS: NIFEdipine 10 MG CAP PO SCH ×3 (06:19→17:43)
[2017-04-11 06:27] LABS: CALCIUM 7.7 mg/dl (8.4-10.2); CREATININE 0.89 mg/dl (0.61-1.24); POTASSIUM 3.3 mmol/L (3.5-5.1)
[2017-04-11] MEDS: FAMOTIDINE 20 MG INJ IV SCH ×2 (07:40→21:45)
[2017-04-11] MEDS: DOCUSATE SODIUM 100 MG CAP PO SCH ×2 (07:40→21:45)
[2017-04-11] MEDS: PROPOFOL 100 ML IV SCH (07:40)
[2017-04-11] MEDS: INSULIN GLARGINE [LANtus] 3 ML PEN SC SCH (07:46)
[2017-04-11 08:08] LABS: MAGNESIUM 1.7 mg/dl (1.7-2.5); PHOSPHORUS 2.9 mg/dl (2.5-4.9)
--- NOTE | 2017-04-11 08:42 | PN ---
Date/Time of Note Date/Time of Note DATE: 04/11/17 TIME: 08:41 Assessment/Plan VTE Prophylaxis VTE Prophylaxis Intervention: SCD's Lines/Catheters IV [facility] Peripheral IV Urinary Cath still in place: Yes Reason Cath still needed: other (indicate) Assessment/Plan Assessment/Plan 82 yo M brought in for acute alteration in mental status managed as follows: 1. Acute resp failure: Remains on full Ventilator support 2. Acute alteration in mental status for which cause is still fairly unclear at this time. Thalamic hemorrhage on CT scan is too small to cause symptoms per Neurosurgery, could be secondary to sepsis superimposed on a small thalamic hemorrhage with a baseline of aphasia 3. Small acute thalamic hemorrhagic stroke, 5 x 4 mm, with surrounding vasogenic edema. 4. Moderate diffuse atherosclerosis causing diffuse stenosis of the intracranial arteries. No evidence of ischemic event found on Brain MRI however 5. Sepsis secondary to probable urinary tract infection (UTI) as well as probable aspiration pneumonia. 6. Multiple previous cerebrovascular accidents (CVAs) in the past. 7. 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 8. Diabetes mellitus, type 2, with very good in-house control. 9. Acute on chronic kidney disease, improving. 10. Hypokalemia, replete as needed. 11. Hypertensive urgency: resolved but still requiring PRN meds to keep BP at goal PLAN: Start tube feeds Wean Vent Continue current antihypertensives Continue supportive care Patient remains stable for ICU transfer to [place] when bed available Prophylaxis: SCDs / Pepcid CC time >35mins Subjective 24 Hr Interval Summary Free Text/Dictation Patient seen No acute overnight issues remains ventilated and sedated Exam/Review of Systems Vital Signs Vitals Vital Signs Date Time Temp Pulse Resp B/P Pulse Ox O2 Delivery O2 Flow Rate FiO2 04/11/17 07:59 98.4 04/11/17 07:45 68 17 100 04/11/17 07:30 126/65 04/11/17 07:06 30 04/11/17 07:00 Mechanical Ventilator 04/09/17 03:30 2.0 Intake and Output 04/10/17 04/10/17 04/11/17 15:00 23:00 07:00 Intake Total 1090.89 ml 1144.88 ml 1062.96 ml Output Total 1190 ml 860 ml 825 ml Balance -99.11 ml 284.88 ml 237.96 ml Exam GENERAL: Intubated and comfortably sedated HEENT: IFRAH, Intubated, Vent settings noted , LUNGS: diffusely diminished and coarse BS HEART: S1, S2. No murmur, gallops or rubs. ABDOMEN: Soft, non distended, Normoactive bowel sounds. GENITOURINARY: Normal male external genitalia, Albert to bedside drainage EXTREMITIES: Mild 1+ nonpitting edema bilaterally, also some hand edema bilaterally NEUROLOGIC: The patient is currently sedated. SKIN: Otherwise, unremarkable. Results Result Diagram: 04/11/17 0535 04/11/17 0535 Results 24 hrs Laboratory Tests Test 04/10/17 12:26 04/10/17 17:27 04/10/17 20:34 04/11/17 01:40 Bedside Glucose 116 111 101 128 Test 04/11/17 05:35 04/11/17 06:15 04/11/17 07:39 White Blood Count 8.2 # Red Blood Count 4.00 L Hemoglobin 12.1 L Hematocrit 34.9 L Mean Corpuscular Volume 87.3 Mean Corpuscular Hemoglobin 30.3 Mean Corpuscular Hemoglobin Concent 34.7 Red Cell Distribution Width 12.9 Platelet Count 205 Mean Platelet Volume 9.7 Neutrophils % 72.9 Lymphocytes % 17.0 Monocytes % 6.2 Eosinophils % 3.2 Basophils % 0.1 Nucleated Red Blood Cells % 0.0 Neutrophils # (Manual) 6.0 Lymphocytes # 1.4 Monocytes # 0.5 Eosinophils # 0.3 Basophils # 0.0 Nucleated Red Blood Cells # 0.0 Sodium Level 138 Potassium Level 3.3 L Chloride Level 110 Carbon Dioxide Level 22 Anion Gap 9 Blood Urea Nitrogen 6 L Creatinine 0.89 Glucose Level 154 Calcium Level 7.7 L Phosphorus Level 2.9 Magnesium Level 1.7 Bedside Glucose 161 161 Medications Medications Current Medications Labetalol HCl (Labetalol) 10 mg Q10M PRN IV elebated BP Last administered on t 15:39; Admin Dose 10 MG; Start 04/07/17 at 05:30 Acetaminophen (Tylenol Tab) 650 mg Q4H PRN PO TEMP GREATER THAN 99.6F; Start at 05:30 Docusate Sodium (Colace) 100 mg BID PO Last administered on 04/11/17 07:40; Admin Dose 100 MG; Start 04/07/17 at 09:00 Ondansetron HCl (Zofran Inj) 4 mg Q6H PRN IV NAUSEA AND/OR VOMITING; Start 04/07 at 05:30 Lorazepam (Ativan) 1 mg Q2H PRN IV ANXIETY Last administered on 04/10/17 17:52 ; Admin Dose 1 MG; Start 04/07/17 at 05:30 Magnesium Hydroxide (Milk Of Mag) 30 ml DAILY PRN PO CONSTIPATION; Start at 05:30 Bisacodyl (Dulcolax) 5 mg DAILY PRN PO CONSTIPATION; Start 04/07/17 at 05:30 Bisacodyl (Dulcolax Supp) 10 mg DAILY PRN [place] CONSTIPATION Last administered on 04/07/17 15:52; Admin Dose 10 MG; Start 04/07/17 at 05:30 Diagnostic Test (Pha) (Accu-Chek) 1 ea 02 XX Last administered on 04/11/17 01: 41; Admin Dose 1 EA; Start 04/08/17 at 02:00 Insulin Glargine (Lantus) 12 unit DAILY@08 SC Last administered on 04/11/17 07: 46; Admin Dose 12 UNIT; Start 04/07/17 at 08:00 Miscellaneous Information 1 ea NOTE XX ; Start 04/07/17 at 05:30 Glucose (Glutose) 15 gm Q15M PRN PO DECREASED GLUCOSE; Start 04/07/17 at 05:30 Glucose (Glutose) 22.5 gm Q15M PRN PO DECREASED GLUCOSE; Start 04/07/17 at 05:30 Dextrose (D50w Syringe) 25 ml Q15M PRN IV DECREASED GLUCOSE; Start 04/07/17 at 05:30 Dextrose (D50w Syringe) 50 ml Q15M PRN IV DECREASED GLUCOSE; Start 04/07/17 at 05:30 Glucagon (Glucagen) 1 mg Q15M PRN IM DECREASED GLUCOSE; Start 04/07/17 at 05:30 Glucose 15 gm 15 gm Q15M PRN BUCCAL DECREASED GLUCOSE; Start 04/07/17 at 05:30 Piperacillin Sod/ Tazobactam Sod (Zosyn 3.375gm/ 100 ml (Pmx)) 100 ml @ 200 mls /hr Q6 IVPB Last administered on 04/11/17 06:19; Admin Dose 200 MLS/HR; Start 04/07/17 at 12:00 Famotidine (Pepcid Iv) 20 mg BID IV Last administered on 04/11/17 07:40; Admin Dose 20 MG; Start 04/08/17 at 21:00 Haloperidol (Haldol) 5 mg Q4H PRN IM ANXIETY Last administered on 04/09/17 02: 00; Admin Dose 5 MG; Start 04/08/17 at 21:30 Insulin Aspart (Adult SC Insulin - Moder... Q4 SC Last administered on 07:45; Admin Dose 2 UNIT; Start 04/09/17 at 01:00 Propofol 100 ml @ 1.791 mls/ hr Q12H IV Last administered on 04/11/17 07:40; Admin Dose 5.373 MLS/HR; Start 04/09/17 at 04:00 Potassium Chloride/Dextrose/ Sod Cl (D5-NS + KCl 20 Meq) 1,000 ml @ 100 mls/hr Q10H IV Last administered on 04/11/17 04:00; Admin Dose 100 MLS/HR; Start at 11:00 Hydralazine HCl (Apresoline) 10 mg Q6H PRN IV sbp>140mmhg Last administered on 04/10/17 17:14; Admin Dose 10 MG; Start 04/10/17 at 16:00 Nifedipine (Procardia) 20 mg Q6 PO Last administered on 04/11/17 06:19; Admin Dose 20 MG; Start 04/10/17 at 18:00 RANDY HAMMONDS Apr 11, 2017 08:42
[2017-04-11] MEDS ORDERED: POTASSIUM CHLORIDE 250 ML IVPB ONE (09:00)
[2017-04-11] MEDS: hydrALAzine 20 MG INJ IV PRN (09:39)
--- NOTE | 2017-04-11 10:38 | CONS ---
Date/Time of Note Date/Time of Note DATE: 04/11/17 TIME: 10:35 Consult Date/Type/Reason Admit Date/Time Apr 07, 2017 at 05:27 Initial Consult Date 04/07/17 Type of Consultation: Pulmonary Subjective Intubated, sedated, pending transfer to [facility]. Objective Vital Signs Date Time Temp Pulse Resp B/P Pulse Ox O2 Delivery O2 Flow Rate FiO2 04/11/17 08:00 67 04/11/17 07:59 98.4 04/11/17 07:45 17 100 04/11/17 07:30 126/65 04/11/17 07:06 30 04/11/17 07:00 Mechanical Ventilator 04/09/17 03:30 2.0 Intake and Output 04/10/17 04/10/17 04/11/17 15:00 23:00 07:00 Intake Total 1090.89 ml 1144.88 ml 1062.96 ml Output Total 1190 ml 860 ml 825 ml Balance -99.11 ml 284.88 ml 237.96 ml Exam PHYSICAL EXAMINATION: GENERAL APPEARANCE: Elderly-appearing gentleman, intubated on mechanical ventilation. Appears comfortable at rest. VITAL SIGNS: NECK: Neck is supple. No JVD. No lymphadenopathy. CARDIAC: S1, S2. No added sounds or murmurs. LUNGS: Diminished air entry bilaterally. ABDOMEN: Abdomen is soft, nontender. No guarding or rebound. EXTREMITIES: No clubbing, cyanosis or edema. NEUROLOGIC: Generalized weakness. Results/Medications Result Diagram: 04/11/17 0535 04/11/17 0535 Results 24 hrs Laboratory Tests Test 04/10/17 12:26 04/10/17 17:27 04/10/17 20:34 04/11/17 01:40 Bedside Glucose 116 111 101 128 Test 04/11/17 05:35 04/11/17 06:15 04/11/17 07:39 White Blood Count 8.2 # Red Blood Count 4.00 L Hemoglobin 12.1 L Hematocrit 34.9 L Mean Corpuscular Volume 87.3 Mean Corpuscular Hemoglobin 30.3 Mean Corpuscular Hemoglobin Concent 34.7 Red Cell Distribution Width 12.9 Platelet Count 205 Mean Platelet Volume 9.7 Neutrophils % 72.9 Lymphocytes % 17.0 Monocytes % 6.2 Eosinophils % 3.2 Basophils % 0.1 Nucleated Red Blood Cells % 0.0 Neutrophils # (Manual) 6.0 Lymphocytes # 1.4 Monocytes # 0.5 Eosinophils # 0.3 Basophils # 0.0 Nucleated Red Blood Cells # 0.0 Sodium Level 138 Potassium Level 3.3 L Chloride Level 110 Carbon Dioxide Level 22 Anion Gap 9 Blood Urea Nitrogen 6 L Creatinine 0.89 Glucose Level 154 Calcium Level 7.7 L Phosphorus Level 2.9 Magnesium Level 1.7 Bedside Glucose 161 161 Medications Current Medications Labetalol HCl (Labetalol) 10 mg Q10M PRN IV elebated BP Last administered on 15:39; Admin Dose 10 MG; Start 04/07/17 at 05:30 Acetaminophen (Tylenol Tab) 650 mg Q4H PRN PO TEMP GREATER THAN 99.6F; Start at 05:30 Docusate Sodium (Colace) 100 mg BID PO Last administered on 04/11/17 07:40; Admin Dose 100 MG; Start 04/07/17 at 09:00 Ondansetron HCl (Zofran Inj) 4 mg Q6H PRN IV NAUSEA AND/OR VOMITING; Start 04/07 at 05:30 Lorazepam (Ativan) 1 mg Q2H PRN IV ANXIETY Last administered on 04/10/17 17:52 ; Admin Dose 1 MG; Start 04/07/17 at 05:30 Magnesium Hydroxide (Milk Of Mag) 30 ml DAILY PRN PO CONSTIPATION; Start at 05:30 Bisacodyl (Dulcolax) 5 mg DAILY PRN PO CONSTIPATION; Start 04/07/17 at 05:30 Bisacodyl (Dulcolax Supp) 10 mg DAILY PRN [place] CONSTIPATION Last administered on 04/07/17 15:52; Admin Dose 10 MG; Start 04/07/17 at 05:30 Diagnostic Test (Pha) (Accu-Chek) 1 ea 02 XX Last administered on 04/11/17 01: 41; Admin Dose 1 EA; Start 04/08/17 at 02:00 Insulin Glargine (Lantus) 12 unit DAILY@08 SC Last administered on 04/11/17 07: 46; Admin Dose 12 UNIT; Start 04/07/17 at 08:00 Miscellaneous Information 1 ea NOTE XX ; Start 04/07/17 at 05:30 Glucose (Glutose) 15 gm Q15M PRN PO DECREASED GLUCOSE; Start 04/07/17 at 05:30 Glucose (Glutose) 22.5 gm Q15M PRN PO DECREASED GLUCOSE; Start 04/07/17 at 05:30 Dextrose (D50w Syringe) 25 ml Q15M PRN IV DECREASED GLUCOSE; Start 04/07/17 at 05:30 Dextrose (D50w Syringe) 50 ml Q15M PRN IV DECREASED GLUCOSE; Start 04/07/17 at 05:30 Glucagon (Glucagen) 1 mg Q15M PRN IM DECREASED GLUCOSE; Start 04/07/17 at 05:30 Glucose 15 gm 15 gm Q15M PRN BUCCAL DECREASED GLUCOSE; Start 04/07/17 at 05:30 Piperacillin Sod/ Tazobactam Sod (Zosyn 3.375gm/ 100 ml (Pmx)) 100 ml @ 200 mls /hr Q6 IVPB Last administered on 04/11/17 06:19; Admin Dose 200 MLS/HR; Start 04/07/17 at 12:00 Famotidine (Pepcid Iv) 20 mg BID IV Last administered on 04/11/17 07:40; Admin Dose 20 MG; Start 04/08/17 at 21:00 Haloperidol (Haldol) 5 mg Q4H PRN IM ANXIETY Last administered on 04/09/17 02: 00; Admin Dose 5 MG; Start 04/08/17 at 21:30 Insulin Aspart (Adult SC Insulin - Moder... Q4 SC Last administered on 07:45; Admin Dose 2 UNIT; Start 04/09/17 at 01:00 Propofol (Diprivan) 100 ml @ 1.791 mls/ hr Q12H IV Last administered on 07:40; Admin Dose 5.373 MLS/HR; Start 04/09/17 at 04:00 Hydralazine HCl (Apresoline) 10 mg Q6H PRN IV sbp>140mmhg Last administered on 04/11/17 09:39; Admin Dose 10 MG; Start 04/10/17 at 16:00 Nifedipine 20 mg 20 mg Q6 PO Last administered on 04/11/17 06:19; Admin Dose 20 MG; Start 04/10/17 at 18:00 Potassium Chloride 40 meq/ Sodium Chloride 1,000 ml @ 70 mls/hr [id number] IV ; Start 04/11/17 at 10:00 Potassium Chloride (KCl 40 MEQ/250 ML NS) 250 ml @ 62.5 mls/hr ONCE ONCE IVPB Last administered on 04/11/17t 10:22; Admin Dose 62.5 MLS/HR; Start 04/11/17 at 09:00; Stop 04/11/17 at 12:59 Assessment/Plan Chief Complaint/Hosp Course IMPRESSION: 1. encephalopathy toxic metabolic. No evidence of new CVA on CT scan. 2. Hypoxemic respiratory failure secondary to neurological deficits. 3. Sepsis with urinary tract infection. 4. History of diabetes mellitus. PLAN: 1. Continue antibiotics. 2. Continue mechanical ventilation. Patient potentially wean able today however pending transfer to [facility]. 3. Neurosurgical recommendations. 4. DVT and GI prophylaxis. Agree with transfer back to [facility]. Problems: JAYLEN CORONA MD, [facility] Apr 11, 2017 10:37
[2017-04-11] MEDS: POTASSIUM CHLORIDE 40 MEQ in SOD CHLORIDE 0.9% 980 ML IV SCH (10:44)
--- NOTE | 2017-04-11 12:38 | CONS ---
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 Current encephalopathy likely secondary to underlying dementia and sepsis. Recommend continue current management, avoiding antiplatelets, SBP<140, continue management of sepsis wean as tolerated, prognosis guarded at this time awaiting tx to [place] Problems: Consultation Date/Type/Reason Admit Date/Time Apr 07, 2017 at 05:27 Date of Consultation: Apr 11, 2017 Type of Consultation: Neurology Reason for Consultation encephalopathy Referring Provider: RANDY HAMMONDS Hx of Present Illness 82 yo male with baseline dementia, history of prior aneurysm s/p craniotomy admitted with AMS, hyperdensity small focus of stable hemorrhage in left thalamic region 5x4 mm with surrounded vasogenic edema. He remains intubated on low dose propofol, being treated for urinary sepsis, probable aspiration pneumonia, when sedation lightened he is able to move all extremities, unable to follow commands. Currently he is pending transfer to [place] for further care. Subjective hx not possible: pt non-verbal, pt critical Past Surgical History Past Surgical Hx: other (Craniotomy) Social History Alcohol Use: other Smoking Status: Never smoker Drug Use: none Exam/Review of Systems Vital Signs Vitals Vital Signs Date Time Temp Pulse Resp B/P Pulse Ox O2 Delivery O2 Flow Rate FiO2 04/11/17 11:03 70 18 100 30 04/11/17 07:59 98.4 04/11/17 07:30 126/65 04/11/17 07:00 Mechanical Ventilator 04/09/17 03:30 2.0 Intake and Output 04/10/17 04/10/17 04/11/17 15:00 23:00 07:00 Intake Total 1090.89 ml 1144.88 ml 1062.96 ml Output Total 1190 ml 860 ml 825 ml Balance -99.11 ml 284.88 ml 237.96 ml Exam intubated able to attempt to open eyes on light sedation unable to follow commands CN: IFRAH, orthophoric gaze intact Dolls, corneals and gag present Motor: moves all extremities to noxious, some purposeful movement of left arm noted Reflexes: 2+ throughout, toes are upgoing bilaterally Results Result Diagram: 04/11/17 0535 04/11/17 0535 Results 24 hrs Laboratory Tests Test 04/10/17 17:27 04/10/17 20:34 04/11/17 01:40 04/11/17 05:35 Bedside Glucose 111 101 128 White Blood Count 8.2 # Red Blood Count 4.00 L Hemoglobin 12.1 L Hematocrit 34.9 L Mean Corpuscular Volume 87.3 Mean Corpuscular Hemoglobin 30.3 Mean Corpuscular Hemoglobin Concent 34.7 Red Cell Distribution Width 12.9 Platelet Count 205 Mean Platelet Volume 9.7 Neutrophils % 72.9 Lymphocytes % 17.0 Monocytes % 6.2 Eosinophils % 3.2 Basophils % 0.1 Nucleated Red Blood Cells % 0.0 Neutrophils # (Manual) 6.0 Lymphocytes # 1.4 Monocytes # 0.5 Eosinophils # 0.3 Basophils # 0.0 Nucleated Red Blood Cells # 0.0 Sodium Level 138 Potassium Level 3.3 L Chloride Level 110 Carbon Dioxide Level 22 Anion Gap 9 Blood Urea Nitrogen 6 L Creatinine 0.89 Glucose Level 154 Calcium Level 7.7 L Phosphorus Level 2.9 Magnesium Level 1.7 Test 04/11/17 06:15 04/11/17 07:39 Bedside Glucose 161 161 Medications Medications Current Medications Labetalol HCl (Labetalol) 10 mg Q10M PRN IV elebated BP Last administered on 15:39; Admin Dose 10 MG; Start 04/07/17 at 05:30 Acetaminophen (Tylenol Tab) 650 mg Q4H PRN PO TEMP GREATER THAN 99.6F; Start at 05:30 Docusate Sodium (Colace) 100 mg BID PO Last administered on 04/11/17 07:40; Admin Dose 100 MG; Start 04/07/17 at 09:00 Ondansetron HCl (Zofran Inj) 4 mg Q6H PRN IV NAUSEA AND/OR VOMITING; Start 04/07 at 05:30 Lorazepam (Ativan) 1 mg Q2H PRN IV ANXIETY Last administered on 04/10/17 17:52 ; Admin Dose 1 MG; Start 04/07/17 at 05:30 Magnesium Hydroxide (Milk Of Mag) 30 ml DAILY PRN PO CONSTIPATION; Start at 05:30 Bisacodyl (Dulcolax) 5 mg DAILY PRN PO CONSTIPATION; Start 04/07/17 at 05:30 Bisacodyl (Dulcolax Supp) 10 mg DAILY PRN [place] CONSTIPATION Last administered on 04/07/17 15:52; Admin Dose 10 MG; Start 04/07/17 at 05:30 Diagnostic Test (Pha) (Accu-Chek) 1 ea 02 XX Last administered on 04/11/17 01: 41; Admin Dose 1 EA; Start 04/08/17 at 02:00 Insulin Glargine (Lantus) 12 unit DAILY@08 SC Last administered on 04/11/17 07: 46; Admin Dose 12 UNIT; Start 04/07/17 at 08:00 Miscellaneous Information 1 ea NOTE XX ; Start 04/07/17 at 05:30 Glucose (Glutose) 15 gm Q15M PRN PO DECREASED GLUCOSE; Start 04/07/17 at 05:30 Glucose (Glutose) 22.5 gm Q15M PRN PO DECREASED GLUCOSE; Start 04/07/17 at 05:30 Dextrose (D50w Syringe) 25 ml Q15M PRN IV DECREASED GLUCOSE; Start 04/07/17 at 05:30 Dextrose (D50w Syringe) 50 ml Q15M PRN IV DECREASED GLUCOSE; Start 04/07/17 at 05:30 Glucagon (Glucagen) 1 mg Q15M PRN IM DECREASED GLUCOSE; Start 04/07/17 at 05:30 Glucose 15 gm 15 gm Q15M PRN BUCCAL DECREASED GLUCOSE; Start 04/07/17 at 05:30 Piperacillin Sod/ Tazobactam Sod (Zosyn 3.375gm/ 100 ml (Pmx)) 100 ml @ 200 mls /hr Q6 IVPB Last administered on 04/11/17 12:07; Admin Dose 200 MLS/HR; Start 04/07/17 at 12:00 Famotidine (Pepcid Iv) 20 mg BID IV Last administered on 04/11/17 07:40; Admin Dose 20 MG; Start 04/08/17 at 21:00 Haloperidol (Haldol) 5 mg Q4H PRN IM ANXIETY Last administered on 04/09/17 02: 00; Admin Dose 5 MG; Start 04/08/17 at 21:30 Insulin Aspart (Adult SC Insulin - Moder... Q4 SC Last administered on 07:45; Admin Dose 2 UNIT; Start 04/09/17 at 01:00 Propofol (Diprivan) 100 ml @ 1.791 mls/ hr Q12H IV Last administered on 07:40; Admin Dose 5.373 MLS/HR; Start 04/09/17 at 04:00 Hydralazine HCl (Apresoline) 10 mg Q6H PRN IV sbp>140mmhg Last administered on 04/11/17 09:39; Admin Dose 10 MG; Start 04/10/17 at 16:00 Nifedipine 20 mg 20 mg Q6 PO Last administered on 04/11/17 12:07; Admin Dose 20 MG; Start 04/10/17 at 18:00 Potassium Chloride 40 meq/ Sodium Chloride 1,000 ml @ 70 mls/hr [id number] IV Last administered on 04/11/17 10:44; Admin Dose 70 MLS/HR; Start 04/11/17 at 10: 00 Potassium Chloride (KCl 40 MEQ/250 ML NS) 250 ml @ 62.5 mls/hr ONCE ONCE IVPB Last administered on 04/11/17 10:22; Admin Dose 62.5 MLS/HR; Start 04/11/17 at 09:00; Stop 04/11/17 at 12:59 MERCEDES AVILA MD Apr 11, 2017 12:36
[2017-04-11] MEDS: LORAZEPAM 2 MG INJ IV PRN (16:03)
[2017-04-11 17:45] LABS: AADO2 Arterial 95.7 mmHg (7.0-24.0); Allen Test ACCEPTAB; Arterial Base Excess -1.3 mmol/L (-3.0-3); Arterial COHb 0.3 % (0.0-3.0); Arterial Fraction of Oxyhgb 96.9 % (93.0-99.0); Arterial MetHb 0.3 % (0.0-1.5); Arterial Total Hemglobin 14.8 g/dl (12.0-18.0); MODE VENT - AC
[2017-04-12] VITALS: BP 157/75; PULSE 63; PULSE 70; RESP 18
[2017-04-12] MEDS: PROPOFOL 100 ML IV SCH (00:07)
[2017-04-12] MEDS: PIPER-TAZO 3.375 GM IV (PMX) 100 ML IVPB SCH (00:11)
[2017-04-12] MEDS: NIFEdipine 10 MG CAP PO SCH (00:11)
[2017-04-12 00:30] VITALS: BP 105/56; PULSE 70; RESP 18
[2017-04-12 00:56] VITALS: PULSE 72
[2017-04-12 01:00] VITALS: BP 113/60; PULSE 72; RESP 18
[2017-04-12] MEDS: Insulin NOVOLOG SS MODERATE Algorithm(NPO/TPN/ENTERAL FEEDS) SC SCH (01:00)
[2017-04-12 01:01] VITALS: RESP 18
[2017-04-12] MEDS: LEVALBUTEROL (HFA) 15 GM INHALER INH SCH (01:07)
[2017-04-12] MEDS: POTASSIUM CHLORIDE 40 MEQ in SOD CHLORIDE 0.9% 980 ML IV SCH (01:24)
== END 2017-04-12 01:30 | disposition short-term general hospital (02) | DRG 871 ==
LOC: E/R 01:15 → ICU 05:27
PROVIDERS: ADMIT Internal Medicine; ATTEND Internal Medicine
PROC: 5A1945Z Respiratory Ventilation, 24-96 Consecutive Hours (ICD-10-PCS; principal; 2017-04-09)
PROC: 0BH17EZ Insertion of Endotracheal Airway into Trachea, Via Natural or Artificial Opening (ICD-10-PCS; 2017-04-09)
DX: A41.9 Sepsis, unspecified organism (principal); J18.9 Pneumonia, unspecified organism; J96.01 Acute respiratory failure with hypoxia; I61.9 Nontraumatic intracerebral hemorrhage, unspecified; N17.9 Acute kidney failure, unspecified; G92 Toxic encephalopathy; I16.1 Hypertensive emergency; N39.0 Urinary tract infection, site not specified; E11.22 Type 2 diabetes mellitus with diabetic chronic kidney disease; R65.20 Severe sepsis without septic shock; I12.9 Hypertensive chronic kidney disease with stage 1 through stage 4 chronic kidney disease, or unspecified chronic kidney disease; N18.9 Chronic kidney disease, unspecified; E87.6 Hypokalemia; I69.320 Aphasia following cerebral infarction
CPT/HCPCS: 31500; 36415; 36600; 70450; 70496; 70544; 71010; 80048; 80053; 81001; 81003; 82803; 82962; 83605; 83735; 84100; 84132; 84484; 85025; 85610; 85730; 87040; 87045; 87081; 87086; 92610; 94002; 94003; 94640; 94770; 96374; 96375; C9113; J0360; J1630; J1815; J2060; J2543; J3370; J3475; J3480; J7030; J7040; J7042; J7050; J7070; J7999; Q9967